=== PATIENT | male | born 1950 | race Hispanic/Latino ===

== ENCOUNTER → 2017-10-29 | Outpatient (CLI) | payer MEDICARE ==
--- NOTE | 2017-10-29 10:22 | Diagnostic Imaging Report ---
PROCEDURE:X-RAY RIGHT SHOULDER, COMPLETE COMPARISON:None. INDICATIONS:SHOULDER PAIN FINDINGS: There is mild joint space narrowing. There are no fractures, dislocations, lytic or blastic lesions. The bones are demineralized. The soft-tissues are unremarkable. CONCLUSION: Mild joint space narrowing. Dorain Marino D.O. Dictated by: Dorian Marino D.O. on 10/29/2017 at 10:27 Electronically approved by: Dorian Marino D.O. on 10/29/2017 at 10:27
== END ==
LOC: RAD 09:14
PROVIDERS: ATTEND Family Medicine
DX: M25.511 Pain in right shoulder (principal)

== ENCOUNTER → 2017-11-13 | Outpatient (CLI) | payer MEDICARE ==
[~2017-11-13] MED LIST: IOPAMIDOL 370 MG/ML 200 ML INFUS..BTL INJ ONE; SODIUM CHLORIDE 0.9% 100 ML ONE
[2017-11-13 16:09] LABS: BLOOD UREA NITROGEN 9 mg/dL (7-26); BUN/CREATININE RATIO 12 (6-25); CREATININE, SERUM 0.75 mg/dL (0.72-1.25); EST GLOMERULAR FILTRATION RATE > 60 ML/MIN (60-)
--- NOTE | 2017-11-14 13:55 | Diagnostic Imaging Report ---
EXAMINATION: CT angiogram of the [place] and neck with contrast CLINICAL HISTORY: Subclavian disorder, seizures COMPARISON: None available TECHNIQUE: The head and neck was scanned utilizing a multidetector helical scanner from the thoracic inlet to the vertex after the I.V contrast administration of 100 mL of Isovue-370. Multiplanar sagittal and coronal reconstructions were performed as well. FINDINGS: The are no areas of abnormal density or enhancement in the brain. There is no mass, hemorrhage or extra-axial fluid collection. The CSF containing spaces are normal in size, position and configuration. CT ANGIOGRAM OF THE [place]: Calcified atherosclerotic plaque in the bilateral carotid siphons without thickened stenoses. The internal carotid artery segments as well as the middle cerebral and anterior cerebral arteries are normal in caliber. The vertebro-basilar circulation is normal. No vascular malformation or aneurysmal dilatation is seen. The draining venous structures are normal and patent. Anatomic variation: Anterior Communicating Artery: Patent Posterior Communicating Arteries: No well-visualized Vertebral arteries: The right is dominant CT ANGIOGRAM OF THE NECK: If present, stenosis of the carotid bulbs is measured based on NASCET criteria i.e area of maximum stenosis compared to the cervical ICA distal to the bulb. Scatter atherosclerotic plaque in the aortic arch, the origin of the great vessels is patent. Right Carotid Artery: Scattered coarse mostly calcified atherosclerotic plaque throughout the right common carotid artery up to the level of the bifurcation, with near-complete occlusion at this level. Mild stenoses of the right carotid bulb (less than 50%). The most cephalic segment of the internal carotid artery is patent. Left carotid artery: Severe stenoses of the left common carotid artery approximately 5 cm from the origin. Extensive mostly coarse calcified atherosclerotic plaque in the left carotid bifurcation and carotid bulb with near complete occlusion of the common carotid artery at the bifurcation level, there is also severe stenoses of the left carotid bulb (greater than 70%). The most cephalic segment of the internal carotid artery is patent Vertebral Arteries: Mild diffuse narrowing and irregularity of the left vertebral artery, with poor opacification of the distal V2 and proximal V3 segments likely related to stenoses, there is distal reconstitution. The right vertebral artery is normal in morphology and caliber. Incidental findings: Chronic multilevel degenerative changes of the cervical spine with minimal spondylolisthesis at C3-C4 and C7-T1. IMPRESSION: 1. Severe stenosis of the left common carotid artery approximately 5 cm distal to the origin. 2. 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 3. Severe stenoses of the left carotid bulb (greater than 70%). 4. Mild stenoses of the right carotid bulb (less than 50%). 5. 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 6. No significant abnormalities of the [place]. Signed by: Dr. Emelyn Giles M.D. on 11/14/2017 1:52 PM
--- NOTE | 2017-11-14 13:55 | Diagnostic Imaging Report ---
EXAMINATION: CT angiogram of the [place] and neck with contrast CLINICAL HISTORY: Subclavian disorder, seizures COMPARISON: None available TECHNIQUE: The head and neck was scanned utilizing a multidetector helical scanner from the thoracic inlet to the vertex after the I.V contrast administration of 100 mL of Isovue-370. Multiplanar sagittal and coronal reconstructions were performed as well. FINDINGS: The are no areas of abnormal density or enhancement in the brain. There is no mass, hemorrhage or extra-axial fluid collection. The CSF containing spaces are normal in size, position and configuration. CT ANGIOGRAM OF THE [place]: Calcified atherosclerotic plaque in the bilateral carotid siphons without thickened stenoses. The internal carotid artery segments as well as the middle cerebral and anterior cerebral arteries are normal in caliber. The vertebro-basilar circulation is normal. No vascular malformation or aneurysmal dilatation is seen. The draining venous structures are normal and patent. Anatomic variation: Anterior Communicating Artery: Patent Posterior Communicating Arteries: No well-visualized Vertebral arteries: The right is dominant CT ANGIOGRAM OF THE NECK: If present, stenosis of the carotid bulbs is measured based on NASCET criteria i.e area of maximum stenosis compared to the cervical ICA distal to the bulb. Scatter atherosclerotic plaque in the aortic arch, the origin of the great vessels is patent. Right Carotid Artery: Scattered coarse mostly calcified atherosclerotic plaque throughout the right common carotid artery up to the level of the bifurcation, with near-complete occlusion at this level. Mild stenoses of the right carotid bulb (less than 50%). The most cephalic segment of the internal carotid artery is patent. Left carotid artery: Severe stenoses of the left common carotid artery approximately 5 cm from the origin. Extensive mostly coarse calcified atherosclerotic plaque in the left carotid bifurcation and carotid bulb with near complete occlusion of the common carotid artery at the bifurcation level, there is also severe stenoses of the left carotid bulb (greater than 70%). The most cephalic segment of the internal carotid artery is patent Vertebral Arteries: Mild diffuse narrowing and irregularity of the left vertebral artery, with poor opacification of the distal V2 and proximal V3 segments likely related to stenoses, there is distal reconstitution. The right vertebral artery is normal in morphology and caliber. Incidental findings: Chronic multilevel degenerative changes of the cervical spine with minimal spondylolisthesis at C3-C4 and C7-T1. IMPRESSION: 1. Severe stenosis of the left common carotid artery approximately 5 cm distal to the origin. 2. 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 3. Severe stenoses of the left carotid bulb (greater than 70%). 4. Mild stenoses of the right carotid bulb (less than 50%). 5. 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 6. No significant abnormalities of the [place]. Signed by: Dr. Emelyn Giles M.D. on 11/14/2017 1:52 PM
== END ==
LOC: CT 15:33
PROVIDERS: ATTEND Specialist
DX: G40.89 Other seizures (principal)
CPT/HCPCS: 36415; 70496; 70498; 82565; 84520; J7050; Q9967

== ENCOUNTER → 2017-12-09 | Outpatient (CLI) | payer OTHER, MEDICAID | LOC: CARD 07:54 | PROVIDERS: ATTEND Family Medicine | DX: M79.605 Pain in left leg (principal); M79.604 Pain in right leg | CPT/HCPCS: 93925 ==

== ENCOUNTER → 2017-12-24 | Outpatient (CLI) | payer MEDICARE ==
--- NOTE | 2017-12-24 16:17 | Diagnostic Imaging Report ---
PROCEDURE:WRIST COMPLETE BILATERAL TECHNIQUE:3 views of the wrists obtained. INDICATION:Joint pain and swelling COMPARISON:None. FINDINGS: Right wrist: The distal radius and ulna are intact. There is an ununited styloid process or remote ununited styloid process fracture. The carpal bones are intact and normally aligned. There are minimal degenerative changes of the CMC joint of the first digit. There are degenerative changes of the first MCP joint and the first IP joint. There is narrowing of the proximal IP joints of digits 2 through 5 and the distal IP joint of the fifth digit. There are no erosive changes. There are mild degenerative changes of the MCP joint of the second digit. No significant osteophytosis. No calcifications or radiopaque foreign bodies in the soft tissues. Left wrist: The distal radius and ulna are intact. The carpal bones are intact and normally aligned. Mild to moderate degenerative changes on the CMC joint of the first digit and mild degenerative changes of the triscaphe. There are moderate degenerative changes of the MCP of the first and second joints, particularly the second joint, with osteophytosis. There is narrowing of the proximal IP joints of digits 2 through 5 and the distal IP joints of the second and third digits with osteophytes. No erosive changes. No calcifications or radiopaque foreign bodies in the soft tissues CONCLUSION: Degenerative changes of the digits as described above, most severely the MCP joint of the second digit of the left hand and left wrist as described above. Dictated by: Flory Pradhan M.D. on 12/24/2017 at 16:23 Electronically approved by: Flory Pradhan M.D. on 12/24/2017 at 16:23
--- NOTE | 2017-12-24 16:24 | Diagnostic Imaging Report ---
PROCEDURE:HAND THREE VIEWS BILATERAL TECHNIQUE:3 views of the hands obtained INDICATION:Bilateral pain and swelling, evaluate for osteoarthritis COMPARISON:[facility], DX, WRIST COMPLETE BILATERAL, 12/24/2017, 15:19. FINDINGS: Right hand: No acute fracture or dislocation. The ununited ulnar styloid process or chronic styloid process fracture is present. There mild degenerative changes of the MCP joint of the first digit and mild changes of the MCP joint of the second digit. There is narrowing of the proximal and distal IP joints of digits 2 through 5 and the IP joint of the first digit. There are osteophytes surrounding the IP joint of the second, third, and fourth digits. No erosive changes. No calcifications or foreign bodies in the soft tissues. Left hand: No acute fracture or dislocation. There are degenerative changes of the triscaphe. Mild to moderate degenerative changes of the MCP joint of the first digit and moderate degenerative changes of the MCP joint of the second digit. There are mild degenerative changes of the MCP joint of the third digit. There is narrowing of the proximal and distal IP joints without significant osteophytosis. No erosive changes. No calcifications or foreign bodies in the soft tissues. CONCLUSION: Degenerative changes of the hand and wrist, most severe in the left hand. No erosions. Dictated by: Flory Pradhan M.D. on 12/24/2017 at 16:30 Electronically approved by: Flory Pradhan M.D. on 12/24/2017 at 16:31
== END ==
LOC: RAD 15:04
PROVIDERS: ATTEND Family Medicine
DX: M79.642 Pain in left hand (principal); M79.641 Pain in right hand; M25.532 Pain in left wrist; M25.531 Pain in right wrist

== ENCOUNTER → 2017-12-29 | Outpatient (CLI) | payer OTHER ==
[~2017-12-29] MED LIST changes: +SODIUM CHLORIDE 0.9% 100 ML 100 ML ONE; -SODIUM CHLORIDE 0.9% 100 ML ONE
[2017-12-29 09:19] LABS: BLOOD UREA NITROGEN 10 mg/dL (7-26); BUN/CREATININE RATIO 15 (6-25); CREATININE, SERUM 0.65 mg/dL (0.72-1.25); EST GLOMERULAR FILTRATION RATE > 60 ML/MIN (60-)
--- NOTE | 2017-12-29 14:13 | Diagnostic Imaging Report ---
PROCEDURE:CTA ABD/PEL/BILATERAL LOWER EXT RUNOFF COMPARISON:None. INDICATIONS:ABNORMAL ARTERIAL DOPPLER TECHNIQUE: Multi-detector CT technology with Dose Reduction was employed. Images were obtained after the administration of 100 cc Isovue 370 intravenously. For optimization of anatomic evaluation, multiplanar and volume rendering reconstructions were performed. Advanced 3-D off-line postprocessing were performed on a dedicated stand-alone workstation under the direct supervision of the interpreting physician. DLP: 6 2929 mGy-cm FINDINGS: Vasculature: The abdominal aorta is non-aneurysmal. There is atherosclerotic calcification diffusely along the course of the abdominal aorta. The celiac axis, SMA, MALINDA, and renal artery origins are patent. 2 renal arteries perfuse each kidney. Iliac inflow: Left: There is extensive atherosclerotic calcification of the iliac arterial system. The proximal common iliac artery is patent. There is short segment severe stenosis of the distal left common iliac artery and proximal left external iliac artery secondary to extensive calcified and noncalcified atherosclerotic plaque. The proximal internal iliac artery is occluded. Distally the external iliac artery is diffusely diseased though appears patent with the exception of a short segment focus of moderate-severe stenosis along the mid segment (series 3 image 72). Right: The common iliac artery is patent proximally, though there is a short segment severe stenosis secondary to extensive calcification seen on series 3 image 63. The proximal internal iliac artery is occluded. There is severe stenosis of the proximal aspect of the external iliac artery at the bifurcation. Additional foci of moderate stenosis along the mid and distal segments of the external iliac artery are seen on series 3 image 79 and image 85. Femoral-popliteal segments: Left: The common femoral artery is patent with diffuse calcified and noncalcified atherosclerotic plaque. The femoral bifurcation is patent. The profunda femoris artery and proximal muscular branches are patent. The superficial femoral artery is notable for diffuse calcified and noncalcified atherosclerotic plaque. There is a short segment focus of suspected moderate stenosis proximally seen on series 3 image 103. The remainder of the superficial femoral artery is widely patent without additional foci of stenosis. The above and below knee segments of the left popliteal artery are patent with mild disease. Right: There is short segment moderate stenosis of the distal common femoral artery seen on series 3 image 97. The femoral bifurcation is patent. The profunda femoris artery and proximal muscular branches are patent. The superficial femoral artery is notable for diffuse calcified and noncalcified atherosclerotic plaque, without significant stenosis. The above and below knee segments of the right popliteal artery are patent without significant stenosis. Runoff: Left: The anterior tibial artery is patent and is visualized to its continuation as dorsalis pedis artery. The tibioperoneal trunk is patent. The peroneal artery is patent to its expected termination above the ankle joint. The posterior tibial artery is patent and is visualized to its continuation of the lateral plantar artery. Right: Anterior tibial artery is patent to its continuation of the dorsalis pedis artery. The tibioperoneal trunk is patent. The peroneal artery is patent to its expected termination above the ankle joint the posterior tibial artery is patent and is visualized to its continuation of the lateral plantar artery. Abdominal and Pelvic soft-tissues and organs: Lung bases: Moderate right pleural effusion with passive atelectasis of the right lower lobe. No pericardial effusion. Liver: No focal hepatic lesion or intrahepatic biliary ductal dilatation. Subcentimeter hypoattenuating lesion in segment 2-3 is too small to further characterize but likely representing small cysts. Biliary: No intrahepatic or extrahepatic biliary ductal dilatation. Spleen: Heterogeneity of splenic attenuation reflects arterial phase of scanning. Pancreas: No mass or ductal dilatation. Adrenal Glands: No nodules. Kidneys: No calculi, hydronephrosis, or mass lesion. GI: Large bowel shows no evidence of distention or wall thickening. There are scattered sigmoid diverticula without evidence of diverticulitis. Normal appendix. Stomach is collapsed with prominence of the rugal folds. No small bowel dilatation to suggest obstruction. Peritoneum/Retroperitoneum: No ascites. No pneumoperitoneum. Reproductive organs: The urinary bladder is poorly distended and poorly evaluated. Coarse prostatic calcifications. Musculoskeletal: No osseous destructive lesions. Multilevel degenerative disc disease of the lumbar spine. Lymph nodes: No pelvic sidewall, retroperitoneal, or mesenteric lymphadenopathy. CONCLUSION: Extensive calcified and noncalcified atherosclerotic disease of the abdominal aorta without major branch vessel stenosis or aneurysmal dilatation. Scattered foci of moderate-severe stenoses of the bilateral common and external iliac arteries as above. The characterization of the degree of stenosis is difficult in light of extensive atherosclerotic calcifications. Short segment moderate stenosis of the distal right common femoral artery. Short segment moderate stenosis of the proximal left superficial femoral artery. Otherwise no significant femoral-popliteal stenosis. 3 vessel runoff bilaterally. Nonvascular findings include a moderate right pleural effusion with passive atelectasis of the right lower lobe and large bowel diverticulosis without evidence of diverticulitis. Dictated by: Eamon Mendes M.D. on 12/29/2017 at 14:19 Electronically approved by: Eamon Mendes M.D. on 12/29/2017 at 14:19
== END ==
LOC: CT 08:31
PROVIDERS: ATTEND Family Medicine
DX: I72.3 Aneurysm of iliac artery (principal)
CPT/HCPCS: 36415; 75635; 82565; 84520; Q9967

== ENCOUNTER → 2018-01-26 | Outpatient (CLI) | payer MEDICARE, OTHER ==
[~2018-01-26] MED LIST changes: -SODIUM CHLORIDE 0.9% 100 ML 100 ML ONE; +SODIUM CHLORIDE 0.9% 50ML 50 ML ONE
[2018-01-26 12:46] LABS: BLOOD UREA NITROGEN 13 mg/dL (7-26); BUN/CREATININE RATIO 17 (6-25); CREATININE, SERUM 0.76 mg/dL (0.72-1.25); EST GLOMERULAR FILTRATION RATE > 60 ML/MIN (60-)
--- NOTE | 2018-01-26 13:47 | Diagnostic Imaging Report ---
EXAMINATION: CT scan of the chest with contrast. TECHNIQUE: Spiral CT images of the chest were performed from the lung apices to the level of the adrenal glands after the intravenous administration of 100 cc of Isovue-370. Coronal and sagittal reformatted images were obtained. COMPARISON: CTA neck 11/13/2017 CLINICAL HISTORY:Smoker, weight loss, pleural effusion DISCUSSION: LINES/TUBES: None. LUNGS AND AIRWAYS: Moderate upper lobe predominant centrilobular and paraseptal emphysematous changes. Mild perihilar and lower lobe predominant groundglass opacities. No suspicious mass lesion, consolidation, or gross fibrotic change. The trachea, mainstem bronchi, and central lobar and segmental bronchi are patent PLEURA: Trace right pleural effusion. No left pleural effusion. HEART AND MEDIASTINUM: Visualized portions of the thyroid gland appear normal. Mild nonspecific right hilar lymphadenopathy for example series 2 image 54 and image 65. No pericardial effusion. No central pulmonary embolus. Pulmonary outflow tract is of normal caliber. No ectasia or aneurysmal dilatation of the thoracic aorta. Atherosclerotic coronary artery calcifications. Short segment severe stenosis of the left subclavian artery proximal to the takeoff of the vertebral artery, unchanged. Bilateral common carotid artery stenoses seen to better advantage on comparison CTA neck from November 21, 2017. LYMPH NODES: As above. ABDOMEN: Subcentimeter hypoattenuating lesions within the left hepatic lobe, too small to further characterize though likely to represent small cysts. Visualized portions of the spleen, adrenals, pancreas, and left kidney are unremarkable. BONES AND SOFT TISSUES: No osseous destructive lesions. Degenerative changes of the shoulder girdles. Multilevel degenerative disc changes of the cervical and thoracic spine. IMPRESSION: Right hilar lymphadenopathy is of uncertain etiology though may be reactive in the absence of a discrete right lung mass. A short-term follow-up (3-[address]) [address] scan of the chest with contrast is suggested to document stability. Alternatively, bronchoscopy with tissue sampling may be considered. Moderate emphysematous changes. Scattered groundglass opacities may reflect atelectasis or mild interstitial edema. Trace right pleural effusion. Vascular findings include short segment severe left subclavian stenosis and bilateral carotid stenoses, previously described on CTA of the neck 11/13/2014. Signed by: Dr. Eamon Mendes M.D. on 01/26/2018 1:42 PM
== END ==
LOC: CT 11:23
PROVIDERS: ATTEND Family Medicine
DX: J90 Pleural effusion, not elsewhere classified (principal); R63.4 Abnormal weight loss; F17.210 Nicotine dependence, cigarettes, uncomplicated
CPT/HCPCS: 36415; 71260; 82565; 84520; Q9967

== ENCOUNTER → 2018-02-11 | Outpatient (CLI) | payer OTHER, MEDICARE | LOC: CARD 09:38 | PROVIDERS: ATTEND Family Medicine | DX: I70.90 Unspecified atherosclerosis (principal); I73.9 Peripheral vascular disease, unspecified; R09.89 Other specified symptoms and signs involving the circulatory and respiratory systems | CPT/HCPCS: 93880 ==

== ENCOUNTER → 2018-02-20 | Outpatient (CLI) | payer MEDICARE, OTHER ==
[~2018-02-20] MED LIST changes: +ASPIRIN81 MG PO; +CEFDINIR300 MG PO; +DEPAKENE250 MG/5 M PO; +DIVALPROEX SOD500 M1 PO; -IOPAMIDOL 370 MG/ML 200 ML INFUS..BTL INJ ONE; +MIRTAZAPINE15 MG PO; +PLAVIX75 MG PO; -SODIUM CHLORIDE 0.9% 50ML 50 ML ONE; +TEGRETOL200 MG PO
--- NOTE | 2018-02-20 09:42 | Diagnostic Imaging Report ---
PROCEDURE:X-RAY LEFT SHOULDER, COMPLETE COMPARISON:CT chest 922017. INDICATIONS:LEFT SHOULDER PAIN FINDINGS: No acute, displaced fracture or dislocation. The humeral head projects appropriately adjacent to the glenoid. Note of a high riding humeral head with decreased acromiohumeral interval. Joint space narrowing and marginal osteophytosis affecting the glenohumeral and acromioclavicular joints. Soft tissues are unremarkable. Partially visualized left hemithorax is well aerated. CONCLUSION: Moderate acromioclavicular and glenohumeral degenerative joint disease. High riding humeral head suggestive of chronic rotator cuff tear. Dictated by: Eamon Mendes M.D. on 02/20/2018 at 9:50 Electronically approved by: Eamon Mendes M.D. on 02/20/2018 at 9:50
== END ==
LOC: RAD 08:51
PROVIDERS: ATTEND Family Medicine
DX: M25.512 Pain in left shoulder (principal)

== ENCOUNTER → 2018-02-26 | Outpatient (CLI) | payer MEDICARE, OTHER ==
--- NOTE | 2018-02-26 13:45 | Diagnostic Imaging Report ---
ADDENDUM #1 EXAM: MODIFIED BA. SWALLOW DATE: 02/26/2018 INDICATION: Oral pharyngeal Dysphasia. Aspiration. COMPARISON: None TECHNIQUE: The study was performed by the speech pathology service. Numerous consistencies of barium were given by mouth. Fluoroscopy was obtained. FLUORO TIME: 0.7 minutes Radiation Dose: 60.21 cGycm2 FINDINGS: Silent trace/mild aspiration of mixed consistencies of swallowed barium. Penetration of thin liquids. Please see speech pathology report for further details. IMPRESSION: Episodes of aspiration and penetration. Please see speech pathology report for further details Signed by: Dr. Pelon Robert M.D. on 03/02/2018 10:22 AM ADDENDUM #2 EXAM: MODIFIED BA. SWALLOW DATE: 02/26/2018 INDICATION: Oral pharyngeal dysphagia. Aspiration. COMPARISON: None TECHNIQUE: The study was performed by the speech pathology service. Numerous consistencies of barium were given by mouth. Fluoroscopy was obtained. FLUORO TIME: 0.7 minutes Radiation Dose: 60.21 cGycm2 FINDINGS: Episodes of aspiration and penetration. Please see speech pathology report for further details. IMPRESSION: Episodes of aspiration and penetration. Please see speech pathology report for further details. Signed by: Dr. Pelon Robert M.D. on 03/09/2018 2:58 PM ORIGINAL REPORT EXAM: MODIFIED BA. SWALLOW DATE: 02/26/2018 INDICATION: Dysphasia. Aspiration. COMPARISON: None TECHNIQUE: The study was performed by the speech pathology service. Numerous consistencies of barium were given by mouth. Fluoroscopy was obtained. FLUORO TIME: 0.7 minutes Radiation Dose: 60.21 cGycm2 FINDINGS: Episodes of aspiration and penetration. Please see speech pathology report for further details. IMPRESSION: Episodes of aspiration and penetration. Please see speech pathology report for further details. Signed by: Dr. Pelon Robert M.D. on 02/26/2018 1:42 PM
== END ==
LOC: DX 09:07
PROVIDERS: ATTEND Internal Medicine Critical Care Medicine
DX: R13.12 Dysphagia, oropharyngeal phase (principal)
CPT/HCPCS: 74230; 92526; 92611; G9162; G9163; G9164

== ENCOUNTER 2018-02-28 17:07 | Inpatient (IN) | payer MEDICARE, OTHER ==
[~2018-02-28] VITALS: Ht 167.6 cm; Wt 65.8 kg
--- OUTSIDE RECORDS SUMMARY | 2018-02-28 17:09 | XMS REPORT ---
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 Allergies, Adverse Reactions, Alerts This patient has no known allergies or adverse reactions. Medications This patient has no known medications. Results Test Description Test Time Test Comments Text Results Atomic Results Result Comments CHASE BA. SWALLOW 2018-02-26 13:38:00 [place] [address] Patient Name: ZEN DOYLE MR #: [id number] : 1950 Age/Sex: 67/M Req #: [id number] Adm Physician: Ordered by: MORRIS PETERS MD Report #: [id number] Location: DX Room/Bed: Procedure: [id number] DX/MODIFIED BA. SWALLOW Exam Date: 02/26/18 Exam Time: 1015 REPORT STATUS: Signed EXAM: MODIFIED BA. SWALLOW DATE: 02/26/2018 INDIC ATION: Dysphasia. Aspiration. COMPARISON: None TECHNIQUE: The study was performed by the speech pathology service. Numerous consistencies of barium were given by mouth. Fluoroscopy was obtained. FLUORO TIME: 0.7 minutes Radiation Dose: 60.21 cGycm2 FINDINGS: Episodes of aspiration and penetration. Please see speech pathology report for further details. IMPRESSION: Episodes of aspiration and penetration. Please see speech pathology report for further details. Signed by: Dr. Nayeli Robert M.D. on 02/26/2018 1:42 PM Dictated By: NAYELI ROBETR MD, MD 41 Transcribed By: ABBI on 02/26/181341 COPY TO: MORRIS PETERS MD SHOULDER LEFT COMPLETE 2018-02-20 09:50:00 [place] [address] Patient Name: ZEN DOYLE MR #: [id number] : 1950 Age/Sex: 67/M Req #: [id number] [facility] Physician: Ordered by: SHELLIE NAVA, JING Scott MD Report #: [id number] Location: [facility] Room/Bed: Procedure: [id number] DX/SHOULDER LEFT COMPLETE Exam Date: 02/20/18 Exam Time: 0920 REPORT STATUS: Signed PROCEDURE: X-RAY LEFT SHOULDER, COMPLETE COMPARISON: CT chest 922017. INDICATIONS: LEFT SHOULDER PAIN FINDINGS: No acute, displaced fracture or dislocation. The humeral head projects appropriately adjacent to the glenoid. Note of a high riding humeral head with decreased acromiohumeral interval. Joint space narrowing and marginal osteophytosis affecting the glenohumeral and acromioclavicular joints. Soft tissues are unremarkable. Partially visualized left hemithorax is well aerated. CONCLUSION: Moderate acromioclavicular and glenohumeral degenerative joint disease. High riding humeral head suggestive of chronic rotator cuff tear. Dictated by: Micky Mendes M.D. on 02/20/2018 at 9:50 Electronically approved by: Micky Mendes M.D. on 02/20/2018 at 9:50 Dictated By: MICKY MENDES MD 9 Transcribed By: PHILLIP on 02/20/18949 COPY TO: JING HENSLEY CT CHEST W 2018-01-26 13:25:00 [place] [address] Patient Name: ZEN DOYLE MR #: [id number] : 1950 Age/Sex: 67/M Req #: [id number] Adm Physician: Ordered by: JING HENSLEY MD, MD Report #: [id number] Location: CT Room/Bed: Procedure: [id number] CT/CT CHEST W Exam Date: 01/26/18 Exam Time: 1300 REPORT STATUS: Signed EXAMINATION: CT scan of the chest with contrast. TECHNIQUE: Spiral CT images of the chest were performed from the lung apices to the level of the adrenal glands after the intravenous administration of 100 cc of Isovue-370. Coronal and sagittal reformatted images were obtained. COMPARISON: CTA neck 11/13/2017 CLINICAL HISTORY:Smoker, weight loss, pleural effusion DISCUSSION: LINES/TUBES: None. LUNGS AND AIRWAYS: Moderate upper lobe predominant centrilobular and paraseptal emphysematous changes. Mild perihilar and lower lobe predominant groundglass opacities. No suspicious mass lesion, consolidation, or gross fibrotic change. The trachea, mainstem bronchi, and central lobar and segmental bronchi are patent PLEURA: Trace right pleural effusion. No left pleural effusion. HEART AND MEDIASTINUM: Visualized portions of the thyroid gland appear normal. Mild nonspecific right hilar lymphadenopathy for example series 2 image 54 and image 65. No pericardial effusion. No central pulmonary embolus. Pulmonary outflow tract is of normal caliber. No ectasia or aneurysmal dilatation of the thoracic aorta. Atherosclerotic coronary artery calcifications. Short segment severe stenosis of the left subclavian artery proximal to the takeoff of the vertebral artery, unchanged. Bilateral common carotid artery stenoses seen to better advantage on comparison CTA neck from November 21, 2017. LYMPH NODES: As above. ABDOMEN: Subcentimeter hypoattenuating lesions within the left hepatic lobe, too small to further characterize though likely to represent small cysts. Visualized portions of the spleen, adrenals, pancreas, and left kidney are unremarkable. BONES AND SOFT TISSUES: No osseous destructive lesions. Degenerative changes of the shoulder girdles. Multilevel degenerative disc changes of the cervical and thoracic spine. IMPRESSION: Right hilar lymphadenopathy is of uncertain etiology though may be reactive in the absence of a discrete right lung mass. A short-term follow-up (3-6 month) CT scan of the chest with contrast is suggested to document stability. Alternatively, bronchoscopy with tissue sampling may be considered. Moderate emphysematous changes. Scattered groundglass opacities may reflect atelectasis or mild interstitial edema. Trace right pleural effusion. Vascular findings include short segment severe left subclavian stenosis and bilateral carotid stenoses, previously described on CTA of the neck 11/13/2014. Signed by: Dr. Micky Mendes M.D. on 01/26/2018 1:42 PM Dictated By: MICKY MENDES MD 1342 Transcribed By: ABBI on 01/26/18 1342 COPY TO: JING HENSLEY CTA ABD/PEL/RUN OFF 2017-12-29 14:19:00 [place] [address] Patient Name: ZEN DOYLE MR #: [id number] : 1950 Age/Sex: 67/M Req #: [id number] Adm Physician: Ordered by: JING HENSLEY MD, MD Report #: [id number] Location: CT Room/Bed: Procedure: CT/CTA ABD/PEL/RUN OFF Exam Date: 12/29/17 Exam Time: 944 REPORT STATUS: Signed PROCEDURE: CTA ABD/PEL/BILATERAL LOWER EXT RUNOFF COMPARISON: None. INDICATIONS: ABNORMAL ARTERIAL DOPPLER TECHNIQUE: Multi-detector CT technology with Dose Reduction was employed. Images were obtained after the administration of 100 cc Isovue 370 intravenously. For optimization of anatomic evaluation, multiplanar and volume rendering reconstructions were performed. Advanced 3-D off-line postprocessing were performed on a dedicated stand-alone workstation under the direct supervision of the interpreting physician. DLP: 6 2929 mGy-cm FINDINGS: Vasculature: The abdominal aorta is non-aneurysmal. There is atherosclerotic calcification diffusely along the course of the abdominal aorta. The celiac axis, SMA, MALINDA, and renal artery origins are patent. 2 renal arteries perfuse each kidney. Iliac inflow: Left: There is extensive atherosclerotic calcification of the iliac arterial system. The proximal common iliac artery is patent. There is short segment severe stenosis of the distal left common iliac artery and proximal left external iliac artery secondary to extensive calcified and noncalcified atherosclerotic plaque. The proximal internal iliac artery is occluded. Distally the external iliac artery is diffusely diseased though appears patent with the exception of a short segment focus of moderate-severe stenosis along the mid segment (series 3 image 72). Right: The common iliac artery is patent proximally, though there is a short segment severe stenosis secondary to extensive calcification seen on series 3 image 63. The proximal internal iliac artery is occluded. There is severe stenosis of the proximal aspect of the external iliac artery at the bifurcation. Additional foci of moderate stenosis along the mid and distal segments of the external iliac artery are seen on series 3 image 79 and image 85. Femoral- popliteal segments: Left: The common femoral artery is patent with diffuse calcified and noncalcified atherosclerotic plaque. The femoral bifurcation is patent. The profunda femoris artery and proximal muscular branches are patent. The superficial femoral artery is notable for diffuse calcified and noncalcified atherosclerotic plaque. There is a short segment focus of suspected moderate stenosis proximally seen on series 3 image 103. The remainder of the superficial femoral artery is widely patent without additional foci of stenosis. The above and below knee segments of the left popliteal artery are patent with mild disease. Right: There is short segment moderate stenosis of the distal common femoral artery seen on series 3 image 97. The femoral bifurcation is patent. The profunda femoris artery and proximal muscular branches are patent. The superficial femoral artery is notable for diffuse calcified and noncalcified atherosclerotic plaque, without significant stenosis. The above and below knee segments of the right popliteal artery are patent without significant stenosis. Runoff: Left: The anterior tibial artery is patent and is visualized to its continuation as dorsalis pedis artery. The tibioperoneal trunk is patent. The peroneal artery is patent to its expected termination above the ankle joint. The posterior tibial artery is patent and is visualized to its continuation of the lateral plantar artery. Right: Anterior tibial artery is patent to its continuation of the dorsalis pedis artery. The tibioperoneal trunk is patent. The peroneal artery is patent to its expected termination above the ankle joint the posterior tibial artery is patent and is visualized to its continuation of the lateral plantar artery. Abdominal and Pelvic soft- tissues and organs: Lung bases: Moderate right pleural effusion with passive atelectasis of the right lower lobe. No pericardial effusion. Liver: No focal hepatic lesion or intrahepatic biliary ductal dilatation. Subcentimeter hypoattenuating lesion in segment 2-3 is too small to further characterize but likely representing small cysts. Biliary: No intrahepatic or extrahepatic biliary ductal dilatation. Spleen: Heterogeneity of splenic attenuation reflects arterial phase of scanning. Pancreas: No mass or ductal dilatation. Adrenal Glands: No nodules. Kidneys: No calculi, hydronephrosis, or mass lesion. GI: Large bowel shows no evidence of distention or wall thickening. There are scattered sigmoid diverticula without evidence of diverticulitis. Normal appendix. Stomach is collapsed with prominence of the rugal folds. No small bowel dilatation to suggest obstruction. Peritoneum/Retroperitoneum: No ascites. No pneumoperitoneum. Reproductive organs: The urinary bladder is poorly distended and poorly evaluated. Coarse prostatic calcifications. Musculoskeletal: No osseous destructive lesions. Multilevel degenerative disc disease of the lumbar spine. Lymph nodes: No pelvic sidewall, retroperitoneal, or mesenteric lymphadenopathy. CONCLUSION: Extensive calcified and noncalcified atherosclerotic disease of the abdominal aorta without major branch vessel stenosis or aneurysmal dilatation. Scattered foci of moderate-severe stenoses of the bilateral common and external iliac arteries as above. The characterization of the degree of stenosis is difficult in light of extensive atherosclerotic calcifications. Short segment moderate stenosis of the distal right common femoral artery. Short segment moderate stenosis of the proximal left superficial femoral artery. Otherwise no significant femoral-popliteal stenosis. 3 vessel runoff bilaterally. Nonvascular findings include a moderate right pleural effusion with passive atelectasis of the right lower lobe and large bowel diverticulosis without evidence of diverticulitis. Dictated by: Micky Mendes M.D. on 12/29/2017 at 14:19 Electronically approved by: Micky Mendes M.D. on 12/29/2017 at 14:19 Dictated By: MICKY MENDES MD 141 Transcribed By: PHILLIP on 12/29/17 141 COPY TO: JING HENSLEY HAND THREE VIEWS BILATERAL 2017-12-24 16:31:00 [place] [address] Patient Name: ZEN DOYLE MR #: [id number] : 1950 Age/Sex: 67/M Req #: [id number] Adm Physician: Ordered by: JING HENSLEY MD, MD Report #: [id number] Location: [facility] Room/Bed: Procedure: [id number] DX/HAND THREE VIEWS BILATERAL Exam Date: Exam Time: REPORT STATUS: Signed PROCEDURE: HAND THREE VIEWS BILATERAL TECHNIQUE: 3 views of the hands obtained INDICATION: Bilateral pain and swelling, evaluate for osteoarthritis COMPARISON: [facility], DX, WRIST COMPLETE BILATERAL, 12/24/2017, 15:19. FINDINGS: Right hand: No acute fracture or dislocation. The ununited ulnar styloid process or chronic styloid process fracture is present. There mild degenerative changes of the MCP joint of the first digit and mild changes of the MCP joint of the second digit. There is narrowing of the proximal and distal IP joints of digits 2 through 5 and the IP joint of the first digit. There are osteophytes surrounding the IP joint of the second, third, and fourth digits. No erosive changes. No calcifications or foreign bodies in the soft tissues. Left hand: No acute fracture or dislocation. There are degenerative changes of the triscaphe. Mild to moderate degenerative changes of the MCP joint of the first digit and moderate degenerative changes of the MCP joint of the second digit. There are mild degenerative changes of the MCP joint of the third digit. There is narrowing of the proximal and distal IP joints without significant osteophytosis. No erosive changes. No calcifications or foreign bodies in the soft tissues. CONCLUSION: Degenerative changes of the hand and wrist, most severe in the left hand. No erosions. Dictated by: Flory Strong M.D. on 12/24/2017 at 16:30 Electronically approved by: Flory Strong M.D. on 12/24/2017 at 16:31 Dictated By: FLORY STRONG MD 1631 Transcribed By: PHILLIP on 12/24/17 1631 COPY TO: JING HENSLEY WRIST COMPLETE BILATERAL 2017-12-24 16:23:00 [place] [address] Patient Name: ZEN DOYLE MR #: [id number] : 1950 Age/Sex: 67/M Req #: [id number] Adm Physician: Ordered by: JING HENSLEY MD, MD Report #: [id number] Location: [facility] Room/Bed: Procedure: [id number] DX/WRIST COMPLETE BILATERAL Exam Date: Exam Time: REPORT STATUS: Signed PROCEDURE: WRIST COMPLETE BILATERAL TECHNIQUE: 3 views of the wrists obtained. INDICATION: Joint pain and swelling COMPARISON: None. FINDINGS: Right wrist: The distal radius and ulna are intact. There is an ununited styloid process or remote ununited styloid process fracture. The carpal bones are intact and normally aligned. There are minimal degenerative changes of the CMC joint of the first digit. There are degenerative changes of the first MCP joint and the first IP joint. There is narrowing of the proximal IP joints of digits 2 through 5 and the distal IP joint of the fifth digit. There are no erosive changes. There are mild degenerative changes of the MCP joint of the second digit. No significant osteophytosis. No calcifications or radiopaque foreign bodies in the soft tissues. Left wrist: The distal radius and ulna are intact. The carpal bones are intact and normally aligned. Mild to moderate degenerative changes on the CMC joint of the first digit and mild degenerative changes of the triscaphe. There are moderate degenerative changes of the MCP of the first and second joints, particularly the second joint, with osteophytosis. There is narrowing of the proximal IP joints of digits 2 through 5 and the distal IP joints of the second and third digits with osteophytes. No erosive changes. No calcifications or radiopaque foreign bodies in the soft tissues CONCLUSION: Degenerative changes of the digits as described above, most severely the MCP joint of the second digit of the left hand and left wrist as described above. Dictated by: Flory Strong M.D. on 12/24/2017 at 16:23 Electronically approved by: Flory Strong M.D. on 12/24/2017 at 16:23 Dictated By: FLORY STRONG MD 22 Transcribed By: PHILLIP on 12/24/17 1623 COPY TO: JING HENSLEY 2017-11-14 11:09:00 [place] [address] Patient Name: ZEN DOYLE MR #: [id number] : 1950 Age/Sex: 67/M Req #: [id number] [facility] Physician: Ordered by: MALINA CONTRERAS MD Report #: [id number] Location: CT Room/Bed: Procedure: [id number] CT/CTA BRAIN Exam Date: 11/13/17 Exam Time: 1600 REPORT STATUS: Signed ADDENDUM #1 Dose modulation, iterative reconstruction, and/or weight based adjustment of the mA/kV was utilized to reduce the radiation dose to as low as reasonably achievable. For optimization of of anatomic evaluation, multi-planar reconstructions, maximum intensity projections, and advanced 3D off-line post-processing was obtained and performed on a dedicated stand-alone workstation under the direct mortensen pervision of the interpreting physician. Signed by: Dr. Rhea Giles M.D. on 12/23/2017 11:43 AM ORIGINAL REPORT EXAMINATION: CT angiogram of the [place] and neck with contrast CLINICAL HISTORY: Subclavian disorder, seizures COMPARISON: None available TECHNIQUE: The head and neck was scanned utilizing a multidetector helical scanner from the thoracic inlet to the vertex after the I.V contrast administration of 100 mL of Isovue-370. Multiplanar sagittal and coronal reconstructions were performed as well. FINDINGS: The are no areas of abnormal density or enhancement in the brain. There is no mass, hemorrhage or extra-axial fluid collection. The CSF containing spaces are normal in size, position and configuration. CT ANGIOGRAM OF THE [place] OF [place]: Calcified atherosclerotic plaque in the bilateral carotid siphons without thickened stenoses. The internal carotid artery segments as well as the middle cerebral and anterior cerebral arteries are normal in caliber. The vertebro-basilar circulation is normal. No vascular malformation or aneurysmal dilatation is seen. The draining venous structures are normal and patent. Anatomic variation: Anterior Communicating Artery: Patent Posterior Communicating Arteries: No well- visualized Vertebral arteries: The right is dominant CT ANGIOGRAM OF THE NECK: If present, stenosis of the carotid bulbs is measured based on NASCET criteria i.e area of maximum stenosis compared to the cervical ICA distal to the bulb. Scatter atherosclerotic plaque in the aortic arch, the origin of the great vessels is patent. Right Carotid Artery: Scattered coarse mostly calcified atherosclerotic plaque throughout the right common carotid artery up to the level of the bifurcation, with near-complete occlusion at this level. Mild stenoses of the right carotid bulb (less than 50%). The most cephalic segment of the internal carotid artery is patent. Left carotid artery: Severe stenoses of the left common carotid artery approximately 5 cm from the origin. Extensive mostly coarse calcified atherosclerotic plaque in the left carotid bifurcation and carotid bulb with near complete occlusion of the common carotid artery at the bifurcation level, there is also severe stenoses of the left carotid bulb (greater than 70%). The most cephalic segment of the internal carotid artery is patent Vertebral Arteries: Mild diffuse narrowing and irregularity of the left vertebral artery, with poor opacification of the distal V2 and proximal V3 segments likely related to stenoses, there is distal reconstitution. The right vertebral artery is normal in morphology and caliber. Incidental findings: Chronic multilevel degenerative changes of the cervical spine with minimal spondylolisthesis at C3-C4 and C7-T1. IMPRESSION: 1. Severe stenosis of the left common carotid artery approximately 5 cm distal to the origin. 2. 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 3. Severe stenoses of the left carotid bulb (greater than 70%). 4. Mild stenoses of the right carotid bulb (less than 50%). 5. 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 6. No significant abnormalities of the [place]. Signed by: Dr. Rhea Giles M.D. on 11/14/2017 1:52 PM Dictated By: RHEA GILES MD 1143 Transcribed By: ABBI on 11/14/17 1352 COPY TO: MALINA CONTRERAS MD CTA NECK 2017-11-14 11:09:00 [place] [address] Patient Name: ZEN DOYLE MR #: [id number] : 1950 Age/Sex: 67/M Req #: [id number] Adm Physician: Ordered by: MALINA CONTRERAS MD Report #: [id number] Location: CT Room/Bed: Procedure: [id number] CT/CTA NECK Exam Date: 11/13/17 Exam Time: 1600 REPORT STATUS: Signed ADDENDUM #1 Dose modulation, iterative reconstruction, and/or weight based adjustment of the mA/kV was utilized to reduce the radiation dose to as low as reasonably achievable. For optimization of of anatomic evaluation, multi-planar reconstructions, maximum intensity projections, and advanced 3D off-line post-processing was obtained and performed on a dedicated stand-alone workstation under the direct sup ervision of the interpreting physician. Signed by: Dr. Rhea Giles M.D. on 12/23/2017 11:43 AM ORIGINAL REPORT EXAMINATION: CT angiogram of the [place] and neck with contrast CLINICAL HISTORY: Subclavian disorder, seizures COMPARISON: None available TECHNIQUE: The head and neck was scanned utilizing a multidetector helical scanner from the thoracic inlet to the vertex after the I.V contrast administration of 100 mL of Isovue-370. Multiplanar sagittal and coronal reconstructions were performed as well. FINDINGS: The are no areas of abnormal density or enhancement in the brain. There is no mass, hemorrhage or extra-axial fluid collection. The CSF containing spaces are normal in size, position and configuration. CT ANGIOGRAM OF THE [place] OF [place]: Calcified atherosclerotic plaque in the bilateral carotid siphons without thickened stenoses. The internal carotid artery segments as well as the middle cerebral and anterior cerebral arteries are normal in caliber. The vertebro-basilar circulation is normal. No vascular malformation or aneurysmal dilatation is seen. The draining venous structures are normal and patent. Anatomic variation: Anterior Communicating Artery: Patent Posterior Communicating Arteries: No well- visualized Vertebral arteries: The right is dominant CT ANGIOGRAM OF THE NECK: If present, stenosis of the carotid bulbs is measured based on NASCET criteria i.e area of maximum stenosis compared to the cervical ICA distal to the bulb. Scatter atherosclerotic plaque in the aortic arch, the origin of the great vessels is patent. Right Carotid Artery: Scattered coarse mostly calcified atherosclerotic plaque throughout the right common carotid artery up to the level of the bifurcation, with near-complete occlusion at this level. Mild stenoses of the right carotid bulb (less than 50%). The most cephalic segment of the internal carotid artery is patent. Left carotid artery: Severe stenoses of the left common carotid artery approximately 5 cm from the origin. Extensive mostly coarse calcified atherosclerotic plaque in the left carotid bifurcation and carotid bulb with near complete occlusion of the common carotid artery at the bifurcation level, there is also severe stenoses of the left carotid bulb (greater than 70%). The most cephalic segment of the internal carotid artery is patent Vertebral Arteries: Mild diffuse narrowing and irregularity of the left vertebral artery, with poor opacification of the distal V2 and proximal V3 segments likely related to stenoses, there is distal reconstitution. The right vertebral artery is normal in morphology and caliber. Incidental findings: Chronic multilevel degenerative changes of the cervical spine with minimal spondylolisthesis at C3-C4 and C7-T1. IMPRESSION: 1. Severe stenosis of the left common carotid artery approximately 5 cm distal to the origin. 2. 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 3. Severe stenoses of the left carotid bulb (greater than 70%). 4. Mild stenoses of the right carotid bulb (less than 50%). 5. 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 6. No significant abnormalities of the [place]. Signed by: Dr. Rhea Giles M.D. on 11/14/2017 1:52 PM Dictated By: RHEA GILES MD [id number] Transcribed By: ABBI on 11/14/17 1352 COPY TO: MALINA CONTRERAS MD SHOULDER RIGHT COMPLETE 2017-10-29 10:27:00 [place] [id number] Patient Name: ZEN DOYLE MR #: [id number] : 1950 Age/Sex: 67/M Req #: [id number] Adm Physician: Ordered by: SHELLIE NAVA, JING Scott MD Report #: [id number] Location: [facility] Room/Bed: Procedure: [id number] DX/SHOULDER RIGHT COMPLETE Exam Date: 10/29/17 Exam Time: 0920 REPORT STATUS: Signed PROCEDURE: X-RAY RIGHT SHOULDER, COMPLETE COMPARISON: None. INDICATIONS: SHOULDER PAIN FINDINGS: There is mild joint space narrowing. There are no fractures, dislocations, lytic or blastic lesions. The bones are demineralized. The soft-tissues are unremarkable. CONCLUSION: Mild joint space narrowing. Dorian Vasquez D.O. Dictated by: Dorian Vasquez D.O. on 10/29/2017 at 10:27 Electronically approved by: Dorian Vasquez D.O. on 10/29/2017 at 10:27 Dictated By: DORIAN VASQUEZ DO 1027 Transcribed By: PHILLIP on 10/29/17 1027 COPY TO: JING HENSLEY
[2018-02-28 17:53] LABS: BASOPHILS % 0.7 % (0.0-1.0); EOSINOPHILS # (AUTO) 0.3 (0.0-0.4); EOSINOPHILS % 4.6 % (0.0-6.0); HEMATOCRIT 30.8 % (38.2-49.6); HEMOGLOBIN 9.9 g/dL (14.0-18.0); LYMPHOCYTES % 16.7 % (18.0-39.1); MEAN CORPUSCULAR HEMOGLOBIN 25.8 pg (28-32); MEAN CORPUSCULAR HGB CONC 32.1 g/dL (31-35); MEAN CORPUSCULAR VOLUME 80.4 fL (81-99); MONOCYTES # (AUTO) 0.4 (0.2-0.8); MONOCYTES % 6.8 % (4.4-11.3); NEUTROPHILS # (AUTO) 4.3 (2.1-6.9); NEUTROPHILS % 70.5 % (38.7-80.0); PLATELET COUNT 282 x10e3/uL (140-360); RED BLOOD COUNT 3.83 x10e6/uL (4.3-5.7); RED CELL DISTRIBUTION WIDTH 15.5 % (11.7-14.4)
--- NOTE | 2018-02-28 17:54 | Diagnostic Imaging Report ---
History:Dysphagia Comparison studies: Cervical and intracranial CTA's on 11/13/2017 Technique: Axial images were obtained from the skull base to the vertex. Coronal and sagittal images reconstructed from the axial data. Dose modulation, iterative reconstruction, and/or weight based adjustment of the mA/kV was utilized to reduce the radiation dose to as low as reasonably achievable. Intravenous contrast: None Findings: Scalp/skull: No abnormalities. Extra-axial spaces: No masses. No fluid collections. Brain sulci: Moderately prominent. Ventricles: Moderate compensatory dilatation. No hydrocephalus. Parenchyma: Cortical encephalomalacic changes (left orbitofrontal and bilateral anterior temporal, the result of previous trauma. Subtle superimposed hypodensities in the supratentorial white matter are small vessel ischemic changes. No masses, hemorrhage, acute or chronic cortical vascular insults. Sellar/suprasellar region: No abnormalities. Craniocervical junction: Patent foramen magnum. No Chiari one malformation. Incidental findings: Atherosclerotic calcifications in the carotid siphons . Impression: No acute abnormalities. Chronic findings: 1. Moderate generalized volume loss. 2. Mild supratentorial white matter small vessel ischemic changes. 3. Cortical posttraumatic changes (left orbitofrontal and bilateral anterior temporal). Signed by: Dr. Sung Zhang M.D. on 02/28/2018 5:50 PM
[2018-02-28 18:06] LABS: INR 0.94; PROTHROMBIN TIME 13.4 seconds (11.9-14.5)
[2018-02-28] MEDS: SODIUM CHLORIDE 0.9% 1000ML 1,000 ML IV SCH ×3 (18:10→20:18)
[2018-02-28 18:19] LABS: ALANINE AMINOTRANSFERASE 11 IU/L (0-55); ALBUMIN/GLOBULIN RATIO 0.8 (0.8-2.0); ALKALINE PHOSPHATASE 79 IU/L (40-150); ANION GAP 15.9 mmol/L (8-16); BLOOD UREA NITROGEN 16 mg/dL (7-26); BUN/CREATININE RATIO 21 (6-25); CALCIUM 9.3 mg/dL (8.4-10.2); CARBON DIOXIDE 23 mmol/L (22-29); CHLORIDE 96 mmol/L (98-107); CREATINE KINASE 20 IU/L (30-200); CREATININE, SERUM 0.78 mg/dL (0.72-1.25); EST GLOMERULAR FILTRATION RATE > 60 ML/MIN (60-); GLUCOSE 151 mg/dL (74-118); POTASSIUM 3.9 mmol/L (3.5-5.1); SODIUM 131 mmol/L (136-145)
[2018-02-28 18:49] LABS: CARBAMAZEPINE (TEGRETOL) 9.01 ug/mL (4.0-12.0)
[2018-02-28] MEDS ORDERED: PLAVIX75 MG PO (19:09)
[2018-02-28] MEDS ORDERED: DEPAKENE250 MG/5 M PO (19:09)
[2018-02-28] MEDS ORDERED: TEGRETOL200 MG PO (19:09)
--- NOTE | 2018-02-28 19:17 | Diagnostic Imaging Report ---
CHEST SINGLE (PORTABLE), 02/28/2018 5:20 PM Technique: CHEST SINGLE (PORTABLE) Comparison: CT 01/26/2018 Clinical history: Shortness of breath Findings: See Impression Impression: 1. Prominent cardiomediastinal silhouette, accentuated by portable technique. 2. Hyperinflation. Motion artifact with minimal bibasilar vascular crowding/atelectasis. 3. Trace right effusion, stable. Right lung apex partially excluded from view. Signed by: Dr Jaz Morales MD on 02/28/2018 7:13 PM
[2018-02-28 19:22] LABS: COLOR,URINE YELLOW (YELLOW)
[2018-02-28 19:23] LABS: CLARITY,URINE CLEAR (CLEAR); KETONES,URINE NEGATIVE (NEGATIVE); LEUKOCYTE ESTERASE ,URINE NEGATIVE (NEGATIVE); NITRITE,URINE NEGATIVE (NEGATIVE); PROTEIN,URINE DIPSTICK NEGATIVE (NEGATIVE); URINE UROBILINOGEN 0.2 mg/dL (0.2 - 1)
[2018-02-28 19:24] LABS: BILIRUBIN,URINE NEGATIVE (NEGATIVE)
[2018-02-28 19:33] LABS: BACTERIA,URINE FEW /HPF; EPITHELIAL CELLS,URINE FEW /LPF; RBC,URINE 0-5 /HPF (0-5); WBC,URINE (MAN) 0-5 /HPF (0-5)
[2018-02-28] MEDS ORDERED: ASPIRIN 81 MG CHEW TAB PO ONE (19:45)
[2018-02-28] MEDS ORDERED: ONDANSETRON HCL INJ 2 MG/ML VIAL IV PRN (19:45)
[2018-02-28] MEDS ORDERED: FAMOTIDINE 20 MG TAB PO SCH (20:00)
[2018-02-28] MEDS: DEPAKOTE DELAYED-RELEASE TAB 500 MG PO SCH (21:14)
[2018-02-28 22:00] VITALS: BP_SYST 102; BP_SYST 111; BP_DIAS 55; BP_DIAS 59
[2018-02-28 23:50] VITALS: BP 111/59
[2018-03-01] VITALS (7 sets, daily range): BP systolic 102–147; BP diastolic 55–67
[2018-03-01 01:29] LABS: CREATINE KINASE MB 0.6 ng/mL (0-5.0)
[2018-03-01] MEDS: SODIUM CHLORIDE 0.9% 1000ML 1,000 ML IV SCH ×4 (05:45→22:28)
[2018-03-01 06:42] LABS: EOSINOPHILS # (AUTO) 0.1 (0.0-0.4); HEMATOCRIT 31.9 % (38.2-49.6); LYMPHOCYTES # (AUTO) 0.8 (1.0-3.2); MEAN CORPUSCULAR HEMOGLOBIN 26.1 pg (28-32); MEAN CORPUSCULAR HGB CONC 31.3 g/dL (31-35); MEAN CORPUSCULAR VOLUME 83.3 fL (81-99); MONOCYTES # (AUTO) 0.3 (0.2-0.8); MONOCYTES % 7.5 % (4.4-11.3); NEUTROPHILS # (AUTO) 2.7 (2.1-6.9); PLATELET COUNT 221 x10e3/uL (140-360); RED BLOOD COUNT 3.83 x10e6/uL (4.3-5.7); RED CELL DISTRIBUTION WIDTH 15.5 % (11.7-14.4)
[2018-03-01 07:03] LABS: ANION GAP 12.2 mmol/L (8-16); BLOOD UREA NITROGEN 11 mg/dL (7-26); BUN/CREATININE RATIO 17 (6-25); CALCIUM 8.9 mg/dL (8.4-10.2); CARBON DIOXIDE 25 mmol/L (22-29); CHLORIDE 101 mmol/L (98-107); CHOL/HDL RATIO 4.4 (3.9-4.7); CHOLESTEROL 146 MD/DL (0-199); CREATININE, SERUM 0.63 mg/dL (0.72-1.25); EST GLOMERULAR FILTRATION RATE > 60 ML/MIN (60-); GLUCOSE 95 mg/dL (74-118); HDL CHOLESTEROL 33 MG/DL (40-60); LDL CHOLESTEROL 95 MG/DL (60-130); POTASSIUM 4.2 mmol/L (3.5-5.1); SODIUM 134 mmol/L (136-145); TRIGLYCERIDES 89 MG/DL (0-149)
[2018-03-01] MEDS ORDERED: CLOPIDOGREL BISULFATE 75 MG TAB PO SCH (09:00)
[2018-03-01] MEDS ORDERED: VALPROATE 250MG/5ML ORAL LIQ 5ml PO SCH (09:00)
[2018-03-01] MEDS: CLOPIDOGREL BISULFATE 75 MG TAB PO SCH (09:30)
[2018-03-01] MEDS: CARBAMAZEPINE 200 MG TAB PO SCH ×2 (09:30→15:35)
[2018-03-01] MEDS: DEPAKOTE DELAYED-RELEASE TAB 500 MG PO SCH ×2 (09:30→15:35)
[2018-03-01] MEDS: ASPIRIN 81 MG ENTERIC COATED PO SCH (09:30)
[2018-03-01] MEDS: FAMOTIDINE 20 MG TAB PO SCH ×2 (09:30→21:06)
[2018-03-01 10:03] LABS: CREATINE KINASE MB 0.6 ng/mL (0-5.0)
--- NOTE | 2018-03-01 11:01 | History and Physical ---
CHIEF COMPLAINT: Transient dizziness, loss of speech, and leg weakness. PRIMARY CARE PHYSICIAN: Dr. Josafat Perez. HISTORY OF PRESENT ILLNESS: The patient is a 67-year-old man. He recently saw me in the office because of bilateral pulmonary infiltrates on the chest CT. Subsequent evaluation showed abnormal swallowing test and aspiration pneumonia. He was planning to attending speech therapy here at [facility]. He also has a history of bilateral carotid artery stenosis. His right carotid artery is 70% occluded and his left carotid artery is 100% occluded. He also has subclavian stenosis on the left side as well as some peripheral vascular disease in the lower extremities. He was seeing a music researcher recently, but the music researcher retired. He is also scheduled to see Dr. Reyes for evaluation for a carotid endarterectomy. The patient noted the abrupt onset of bilateral leg weakness and unsteadiness last night. He also complained of dizziness and difficulty speaking. He felt as if he were going to pass out. His rubbed some alcohol on his neck and gave him a soft drink, which apparently helped. He then went to the ER and was admitted for a transient ischemic attack. PAST MEDICAL HISTORY 1. Bilateral carotid artery stenosis, 70% on the right and 100% on the left. 2. Subclavian artery stenosis. 3. Seizure disorder. 4. Recurrent aspiration pneumonitis. PAST SURGICAL HISTORY: Noncontributory. ALLERGIES: THE PATIENT HAS NO KNOWN DRUG ALLERGIES. REVIEW OF SYSTEMS: He has no fever or headache. He did have some transient dizziness. He does not complain of neck pain. He is not complaining of chest pain or difficulty breathing. He has no abdominal pain. There is no nausea or vomiting. He has transient weakness in his legs as well as in his speech; this has resolved. PHYSICAL EXAMINATION VITAL SIGNS: The blood pressure is 102/55 and the saturation is 89%. The pulse is 89. HEENT: Shows no facial swelling or erythema. The nasal mucosa is normal. The oropharynx is normal. LYMPHATIC: Shows no submandibular, cervical, or supraclavicular adenopathy. CARDIAC: Reveals regular rate and rhythm with a normal S1 and S2. There are no murmurs or rubs. LUNGS: Auscultation of the lungs reveals a few crackles at the bases. There is no wheezing. ABDOMEN: Soft, nontender. There is no rebound or guarding. EXTREMITIES: Show possible peripheral vascular disease in the lower extremities. RADIOGRAPHIC DATA: Chest x-ray shows minimal bibasilar atelectasis and possibly a trace right pleural effusion. A CT scan of the chest showed scattered ground-glass opacities consistent with basal atelectasis. Recent swallowing evaluation showed episodes of aspiration and penetration. LABORATORY DATA: Hemoglobin is 10 with an MCV of 83.3 and the platelet count is 221. The other electrolytes are within normal limits. IMPRESSION 1. Transient ischemic attack with established carotid artery disease. 2. Subclavian artery stenosis. 3. Peripheral vascular disease. 4. Recurrent aspiration pneumonitis. PLAN 1. Patient will be evaluated by cardiology as well as CT surgery. The patient may need a carotid endarterectomy. 2. Continue Plavix. 3. Neurology evaluation. 4. Physical therapy. 5. Speech therapy. Job#: [id number] GUERO
[2018-03-01] MEDS ORDERED: MIRTAZAPINE15 MG PO (13:43)
[2018-03-01] MEDS ORDERED: DIVALPROEX SOD500 M1 PO (13:43)
[2018-03-01] MEDS ORDERED: CEFDINIR300 MG PO (13:44)
[2018-03-01] MEDS: NAPROXEN 250 MG TAB PO PRN ×2 (15:35→21:07)
--- NOTE | 2018-03-01 23:11 | Consultation ---
DATE OF CONSULTATION: March 01, 2018 CARDIOLOGY CONSULTATION REASON FOR CONSULTATION: Carotid disease, possible TIA. HISTORY OF PRESENT ILLNESS: Mr. Allen is a pleasant 67-year-old man with history of hypertension, dyslipidemia, strong history of smoking over 50 years, he has quit since, history of seizure disorder, known carotid disease with occlusion of left internal carotid artery and significant stenosis of the right internal carotid artery. He presents to [facility] with complaints of slurred speech as noted by family members along with unsteady gait, episode lasts approximately 20 minutes. Upon evaluation by the emergency department, he was not observed to have any focal residual speech deficit or focal weakness. He describes chronic stable dyspnea on exertion to moderate activity associated with some chest heaviness. He denies any recent cardiac evaluation. He denies any prior history of heart attacks or stroke that he can report, but does complain of a prior history of seizures. He has been evaluated in the past for carotid disease and is scheduled for possible evaluation by Dr. Reyes for carotid endarterectomy. Discussing with family members and patient, he has been having some issues with independence and maintaining activities of daily living. He needs assistance with preparing his meals. He is able to eat on his own, however, with some difficulty and he is using a walker to get around. Imaging studies are concerning for evaluated for unsteady gait, which he describes to bilateral lower extremities. He is also has episode s of dizziness. He denies any syncopal episodes since this is resolved after reportedly rubbed some alcohol on his neck, then given Coke, which the patient describes helped. He currently has no complaints other than have been discussed. ALLERGIES: NO KNOWN DRUG ALLERGIES. PAST MEDICAL HISTORY: Carotid artery stenosis, 20% on right, 100% on left per previous reports, subclavian artery stenosis, seizure disorder, aspiration pneumonitis. SURGICAL HISTORY: Noncontributory. FAMILY HISTORY: Hypertension, dyslipidemia, otherwise noncontributory. SOCIAL HISTORY: Former smoker over 50 pack years. Occasional alcohol. No drugs. Quit smoking. PHYSICAL EXAM VITALS: Temperature 98.7, heart rate 89, respiratory rate 20, blood pressure 102/55, respiratory rate 20, O2 sat 98%. GENERAL: In no acute distress, chronically ill appearing, seems somewhat confused. Some of the information obtained from family. Does initiate response, however, seems to stagger and he currently has family assist with answers. NECK: No JVD. Has carotid bruits bilaterally, most pronounced to left. CHEST: Scattered rales in the bases. CARDIOVASCULAR: Regular rate and rhythm. Normal S1 and S2. No S3 or S4. No murmurs or rubs. ABDOMEN: Nontender. EXTREMITIES: No edema. Decreased pulses, bilateral lower extremities. STUDIES: Reviewed. Creatinine is 0.6, potassium 4.2, bicarbonate 25, hemoglobin of 10, platelets 221,000, white blood cells 4, INR 0.9. AST 13, ALT 11. Echocardiogram with left ventricular systolic function 60% -65%. Impaired LV relaxation, age appropriate. Mild concentric hypertrophy. That was on 03/01/2018. The carotid Doppler, which suggests elevated velocity to the right common carotid artery at 244 cm per second suggestive of critical stenosis, more than 75%, on the right internal carotid artery concerning for at least [id number] stenosis about 50%-69% by velocity, velocities to right external carotid artery. The antegrade flow to right vertebral and left vertebral showing retrograde flow. The left common carotid artery with critical stenosis at the bifurcation area also of the bulb with critical stenosis, left internal carotid artery with severe stenosis by Doppler. His lower extremity arterial Doppler suggests right [employer] stenoses, monophasic waveforms in the right femoral artery suggesting of hemodynamically significant femoral disease. CTA with aortoiliac femoral disease, which is severe bilaterally and subclavian stenosis also reported on CT of chest with moderate emphysematous changes and right hilar lymphadenopathy, also observed the left subclavian artery stenosis and bilateral carotid stenosis are notable with left subclavian stenosis seemingly preceding the vertebral artery. ASSESSMENT 1. Severe carotid and subclavian artery disease with retrograde flow noted to left vertebral artery concerning for steal phenomenon. 2. Chest pain/shortness of breath in the setting of emphysema and high suspicion for angina pectoris with no recent evaluation. 3. Significant deconditioning. 4. Aspiration pneumonia, suspected, undergoing speech pathology evaluation. 5. Issues with memory, also of concern (undiagnosed dementia vascular?). 6. Anemia. 7. Severe peripheral arterial disease, bilateral iliofemoral vessels. RECOMMENDATIONS 1. Add atorvastatin at 40 mg daily with plans to upscale to 80 mg daily if tolerated. 2. Agree with antiplatelet. 3. Neurology evaluation is being requested and is pending. 4. Appreciate input. 5. Cardiovascular surgery has been consulted and will evaluate further. Will coordinate care with rest of attending physicians. Will be available for angiogram as needed to further assess anatomy for possible endovascular intervention or surgical intervention if need be. Overall, the patient has a guarded prognosis. with rehab/physical therapy, occupational therapy is advised at this point. Thank you, Dr. Alcantar, for the opportunity to participate in the care of Mr. Allen. We will follow the patient with you. Job#: [id number] CQ
[2018-03-02] VITALS (8 sets, daily range): BP systolic 132–152; BP diastolic 62–70
[2018-03-02] MEDS: SODIUM CHLORIDE 0.9% 1000ML 1,000 ML IV SCH ×2 (08:25→18:16)
[2018-03-02] MEDS: CARBAMAZEPINE 200 MG TAB PO SCH ×2 (08:36→18:11)
[2018-03-02] MEDS: ASPIRIN 81 MG ENTERIC COATED PO SCH (08:36)
[2018-03-02] MEDS: CLOPIDOGREL BISULFATE 75 MG TAB PO SCH (08:36)
[2018-03-02] MEDS: FAMOTIDINE 20 MG TAB PO SCH ×2 (08:36→22:30)
[2018-03-02] MEDS: DEPAKOTE DELAYED-RELEASE TAB 500 MG PO SCH ×2 (08:36→18:11)
[2018-03-02] MEDS ORDERED: SODIUM CHLORIDE 0.9% IV ONE (18:00)
[2018-03-02] MEDS ORDERED: VALPROATE SOD IV ONE (18:00)
--- NOTE | 2018-03-02 18:47 | Progress Note ---
DATE: March 02, 2018 CARDIOLOGY PROGRESS NOTE SUBJECTIVE: No new complaints today. Coordinating care with neurology. Patient was seen by CV surgery. Significant weight loss. Significant history of smoking. Denies chest pain or shortness of breath today. OBJECTIVE VITALS: Temperature 98.2, heart rate 87, respiratory rate 14, blood pressure 137/63, O2 sat 95% on room air. GENERAL: In no acute distress. NECK: No JVD. Carotid bruits noted bilaterally. CARDIOVASCULAR: Regular rate and rhythm. Normal S1 and S2. ABDOMEN: Soft. EXTREMITIES: Decreased pulses. CARDIOVASCULAR MEDICATIONS 1. Clopidogrel 75 mg daily. 2. Aspirin 81 mg daily. 3. Lovenox 40 mg subcutaneous daily. 4. Atorvastatin 40 mg nightly. STUDIES: Reviewed. None for today. TELEMETRY: Sinus rhythm. ASSESSMENT 1. 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 2. Aspiration pneumonia. 3. Deconditioning. 4. Chest pain and shortness of breath in the setting of emphysema and high suspicion for angina pectoris. 5. Memory issues concerning for undiagnosed vascular dementia. 6. Anemia. 7. Weight loss, unclear etiology. RECOMMENDATIONS: Will discuss with Dr. Alcantar. At this point, consider possibility of stress testing for further perioperative evaluation. Neurology ordering MRI and CT angiogram head and neck to further assess anatomy. Presentation is concerning for posterior fossa TIA or CVA. Further workup depending on initial findings. Weight loss evaluation ongoing, too. Will follow along with you. Job#: [id number]
--- NOTE | 2018-03-02 19:53 | Diagnostic Imaging Report ---
History: Near syncope, rule out TIA. Comparison studies: CT brain from 02/28/2018 and CTA head from 11/13/2017. Technique: Sagittal T2; axial DWI, FLAIR, GRE, T2, T1, Coronal FLAIR. Intravenous contrast: None Findings: Scalp: Normal in signal . No masses . Bone marrow: Normal in signal intensity. Brain sulci: Prominent. Ventricles: Moderate compensated dilatation due to volume loss . No hydrocephalus . Parenchyma: Cortical-based hypodensity in left orbitofrontal gyrus, anterior aspect of bilateral (left more than right) temporal lobe represents chronic encephalomalacia, possibly a sequel of prior trauma. Nonspecific bilateral frontoparietal patchy white matter T2/FLAIR hyperintense foci as well as subtle T2/FLAIR hyperintense foci in the monica represents small vessel ischemic changes. Old lacunar infarct in bilateral manrique radiata. No masses, hemorrhage, acute vascular insult. Suprasellar region: No abnormalities. Craniocervical junction: Patent foramen magnum. No Chiari malformation . Vessels: Normal flow-voids in the arteries and sinuses. IMPRESSION: 1. No acute intracranial abnormality. 2. Moderate generalized cerebral volume loss. 3. Chronic encephalomalacia in left orbitofrontal gyrus and bilateral temporal lobe, sequelae of prior trauma. 4. Mild supratentorial white matter microvascular ischemic changes. Signed by: Dr. Joanie Loomis M.D. on 03/02/2018 7:50 PM
--- NOTE | 2018-03-02 21:56 | Consultation ---
DATE OF CONSULTATION: March 02, 2018 NEUROLOGY CONSULT NOTE HISTORY OF PRESENT ILLNESS: Mr. Gonzales is a 67-year-old right-hand dominant man with past medical history significant for hyperlipidemia, coronary artery disease, prior traumatic brain injury, secondary seizure disorder, and peripheral vascular disease, admitted to [facility] on February 28, 2018 with symptoms concerning for a transient ischemic attack. On the day of admission, the patient experienced the sudden onset of slurred speech, dizziness which is further described as lightheadedness, and an unsteady gait with poor balance. Mr. Gonzales does not report a visual field cut or other disturbance, aphasia, facial weakness, hemiparesis, hemihyperesthesia or confusion. The patient does report generalized weakness as well as diffuse joint pain, especially of the hands. Following the sudden onset of the above symptoms, Mr. Gonzales was brought to the emergency center at [facility] by private vehicle for further evaluation. En route, his symptoms resolved. According to the patient's son, the symptoms lasted approximately 30 minutes. Upon admission to the emergency center, the patient was afebrile with a blood pressure 103/67 mmHg and a pulse of 108 beats per minute. His neurological examination was documented as being nonfocal. A CT of the brain without contrast was performed while the patient remained in the emergency center. There is no evidence of recent large territorial ischemia or hemorrhage. Mr. Gonzales was admitted to [facility] for further evaluation and treatment of his transient neurological symptoms. It is unclear if the patient has experienced similar symptoms previously. 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 The patient's son described Mr. Gonzales seizures as follows: The patient abruptly loses consciousness and has generalized tonic-clonic activity affecting both arms and both legs. Tongue biting is usually present. The patient's son denies foaming saliva/drooling or bladder or bowel incontinence. The seizure activity lasts approximately 60 to 90 seconds. Afterwards, the patient is confused and tired. He returned to his neurological baseline in approximately 2 hours. The son is not aware of his father experiencing other types of seizures. Mr. Gonzales takes his antiepileptic medications as prescribed, he may experience 1 seizure in a year. When he does not take his antiepileptic medications, his seizures occur frequently. REVIEW OF SYSTEMS: Diffuse joint pain, especially of the hands, dysarthria, impairment of balance and gait. Otherwise, the 12-point review of systems is negative. PAST MEDICAL HISTORY: Hyperlipidemia, coronary artery disease, prior history of tuberculosis, osteoarthritis, questionable rheumatoid arthritis, secondary seizure disorder, prior traumatic brain injury, bilateral carotid artery stenosis (reportedly 70% on the right and 100% on the left), peripheral vascular disease. PAST SURGICAL HISTORY: None. PAST HOSPITALIZATIONS: Multiple hospitalizations for seizures. FAMILY MEDICAL HISTORY: The patient's paternal and maternal grandparents are . Their medical histories are unknown. The patient's father and mother are . Their medical histories are unknown. Mr. Gonzales had 14 siblings. Two brothers are secondary to gunshot wounds. One brother is from a motor vehicle accident. The remaining siblings are alive. Their medical histories are unknown. Mr. Gonzales has 5 children, 3 sons, and 2 daughters, all of whom are alive and healthy. SOCIAL HISTORY: The patient is . He is retired. Mr. Gonzales reportedly quit smoking cigarettes approximately 4 weeks ago. Prior to this, he had a 54-year history of tobacco use. The patient quit drinking alcohol 22 years ago when he was a "heavy drinker". Over the past several years, the patient has resumed alcohol consumption, but does so socially. There is no reported current or prior recreational drug use. HOME MEDICATIONS 1. Tegretol 200 mg by mouth 3 times daily. 2. Omnicef 300 mg by mouth twice daily for 10 days. 3. Plavix 75 mg by mouth daily. 4. Divalproex sodium ER 1000 mg by mouth daily. 5. Mirtazapine 30 mg by mouth at bedtime daily. ALLERGIES: NO KNOWN DRUG ALLERGIES. NO KNOWN FOOD ALLERGIES. NO KNOWN ALLERGIES TO LATEX. NO KNOWN ALLERGIES TO IODINE OR OTHER CONTRAST MATERIALS. PHYSICAL EXAMINATION VITAL SIGNS: Height 66 inches, weight 145 pounds, BMI 24.0 kg per meter squared. Blood pressure 137/63 mmHg. Pulse 87 beats per minute. Respiratory rate 14 breaths per minute, oxygen saturation 95% on room air. GENERAL: The patient is awake and alert. Does not appear distressed. HEENT: Normocephalic, atraumatic. Pupils are equal, round, and reactive to light. Moist mucous membranes. NECK: Supple. No appreciable thyromegaly. Positive right carotid bruit. Carotid bruits are not appreciated on the left. CARDIOVASCULAR: S1, S2, regular rate and rhythm. No murmurs, rubs, or gallops. RESPIRATORY: Clear to auscultation bilaterally. No wheezes, rhonchi or rales. EXTREMITIES: The skin is warm and dry. No clubbing, cyanosis or edema. The posterior tibial and dorsalis pedis pulses are 1+ and symmetric. SKIN: No rashes or lesions. NEUROLOGIC Memory/Attention: Patient is awake and alert. Oriented to person, place, time, and situation. Cranial Nerves: Cranial nerve I--not tested. Cranial nerve II, III, IV, and --pupils are equal and round, react briskly to light (from 4 mm to 2 mm). Extraocular movements intact. No nystagmus. Cranial nerve V--sensation to light touch and pinprick is intact in the bilateral V1 through V3 distributions. Strength of the temporalis and masseter muscles is within normal limits. Cranial nerve VII--the face is symmetric as are all facial movements. Strength is within normal limits. Cranial nerve VIII--hearing is intact to finger rub bilaterally. Cranial nerve IX, X--the soft palate elevates equally and symmetrically. Cranial nerve XI--normal strength of the bilateral sternocleidomastoid and trapezius muscles. Cranial nerve XII--the tongue protrudes midline and moves symmetrically from side to side. Strength: Bulk is normal. Strength is 5/5 in the bilateral deltoids, biceps, triceps, wrist flexors and extensors, finger flexors and extensors, intrinsic hand muscles, hip flexors, knee flexors and extensors, ankle dorsiflexion and plantar flexion, and intrinsic foot muscles. Tone is normal. DTRs: Deep tendon reflexes are 1+ and symmetric at the triceps, biceps, brachioradialis, and patellas. Deep tendon reflexes are trace and symmetric at the Achilles. Plantar responses are flexor bilaterally. Sensation: Sensation is intact to light touch and pinprick in both arms and both legs. Cerebellar: Yavglx-zveo-cwxxqb and heel-choudhury movements are intact on the left without dysmetria or other impairment. There is mild dysmetria with umsrrd-ljbu-ofrejy movements on the right. Heel-choudhury movements on the right are intact. Gait: Deferred. Speech: Spontaneous speech is normal without appreciable dysarthria or aphasia. Repetition is intact. Involuntary Movements: None. Pronator Drift: None. LABORATORY DATA: The most recent basic metabolic panel is significant for a sodium of 134 and a creatinine of 0.63. Cardiac enzymes are negative times 3. Liver function panel, drawn on 02/28/2018 is unremarkable. Total cholesterol 146, triglycerides 89, LDL cholesterol 95, HDL cholesterol 33. The CBC with differential and platelets revealed a white blood cell count 4.01 with a normal differential. The hemoglobin and hematocrit are 10.0 and 31.9, respectively. The platelet count is 221,000. PT 13.4, INR 0.94, PTT 37.0. A urinalysis was significant for trace blood only, valproic acid level 27. Carbamazepine level 9.01. A urine culture collected on February 28, 2018 reveals no growth between 36 and 48 hours. DIAGNOSTIC STUDIES: Electrocardiogram 02/29/2008: Sinus tachycardia [address] of the brain without contrast 02/28/2018: On my review, there is no evidence of recent large territorial ischemia, hemorrhage, mass or mass effect. There is mild to moderate diffuse cerebral atrophy. There are posttraumatic changes in the left orbitofrontal and bilateral anterior temporal lobes. There are findings compatible with mild supratentorial small vessel ischemic disease. Chest x-ray 02/28/2018 1. Prominent cardiomediastinal silhouette, accentuated by portable technique. 2. Hyperinflation. Motion artifact with minimal bibasilar vascular crowding/atelectasis. 3. Trace right effusion, stable. Right lung apex partially excluded from view. ASSESSMENT AND PLAN: Mr. Gonzales is a 67-year-old right-hand dominant man with past medical history significant for hyperlipidemia, coronary artery disease, carotid artery stenosis, peripheral vascular disease, traumatic brain injury, and secondary seizure disorder, admitted to [facility] on February 28, 2018, with transient neurological deficits as detailed in history of present illness. At present, the patient's neurological examination is significant for mild dysmetria with jrazrl-ixnm-idkldn movements on the right. Otherwise, the neurological examination is nonfocal. The patient's laboratory data and other diagnostic studies have been reviewed and are documented above. In my opinion, the patient's history and findings on his neurological examination are most compatible with either a transient ischemic attack or stroke in the posterior circulation. There is low suspicion for a seizure due to the duration of the symptoms. The description of the patient's symptoms as provided by the patient and his son are not compatible with a semiology of the patient's seizures. RECOMMENDATIONS 1. A hemoglobin A1c will be ordered. 2. A MRI of the brain without contrast will be ordered. 3. A CTA of the brain and neck with contrast will be ordered. 4. Continue with dual antiplatelet therapy (aspirin and Plavix) per cardiology. 5. The patient's blood pressure may be gradually normalized. His goal blood pressure is less than 140/90 mmHg. 6. The patient's total cholesterol is at goal. His LDL is 95, which is greater than the stated goal of 70. Agree with treatment with atorvastatin 40 mg by mouth at bedtime daily. 7. Follow up the results of the hemoglobin A1c. Tight glycemic control is recommended while the patient remains in the hospital. 8. Physical and speech therapies are ordered and pending. 9. GI prophylaxis with Pepcid 20 mg by mouth twice daily with meals. DVT prophylaxis with Lovenox 40 mg subcutaneously daily. 10. As regards to patient's seizure disorder, treatment with the patient's current antiepileptic medications will be continued. It should be noted, the patient's valproic acid level was low on admission. A loading dose of valproic acid 10 mg per kg (approximately), will be administered intravenously once. A repeat valproic acid level will be drawn with morning labs. 11. Defer treatment of the remaining medical comorbidities to the primary and other services following the patient. Thank you for this consultation. I will continue to follow the patient while he remains in the hospital. TIME SPENT: 70 minutes. Job#: [id number] MARIA DEL CARMEN
[2018-03-02] MEDS: ATORVASTATIN 20 MG TAB PO SCH (22:30)
[2018-03-03] VITALS (7 sets, daily range): BP systolic 132–163; BP diastolic 65–72
--- NOTE | 2018-03-03 00:08 | Diagnostic Imaging Report ---
EXAMINATION: CT angio of the neck and head with contrast. HISTORY:Near syncope, rule out TIA. COMPARISON:MRI brain from 03/02/2018, CT brain from 02/28/2018 and CTA head and neck from 11/13/2017. TECHNIQUE: Multidetector helical axial images were acquired through the neck and head during infusion of iodinated contrast material. Images were reviewed in multiplanar and 3-dimensional format. Dose modulation, iterative reconstruction, and/or weight based adjustment of the mA/kV was utilized to reduce the radiation dose to as low as reasonably achievable. Contrast: 100 mL of Isovue-370 . FINDINGS: NECK: If carotid bulb stenosis is present, stenosis is measured with respect to the distal extracranial internal carotid artery. Aortic arch and major vessels: Multifocal scattered nonstenotic atherosclerotic calcifications in the aortic arch and origin of great vessels, particularly bilateral subclavian arteries. Common origin of right brachiocephalic trunk and left common carotid artery. Common carotid arteries: Multifocal scattered hard atherosclerotic plaque throughout the right common carotid artery. Soft atherosclerotic plaque approximately 5 cm distal from the origin of left common carotid artery results in approximately 70% vascular stenosis. A tandem hard atherosclerotic plaque approximately 7.5 mm above approximately results in 75% vascular stenosis in left common carotid artery. Cervical carotid bifurcations: Moderate to severe hard atherosclerotic plaque at the right carotid bulb results in less than 50% stenosis. Hard atherosclerotic plaque at the origin of right external carotid artery results in approximately 60% vascular stenosis. Severe hard atherosclerotic plaque in left carotid bulb with near complete occlusion at the origin of left external carotid artery. There is approximately greater than 70% vascular stenosis of left carotid bulb. Internal carotid arteries: Right: Hard atherosclerotic plaque at the origin of right internal carotid artery just above the bifurcation results in approximately 55% vascular stenosis. Left: Hard atherosclerotic plaque at the origin of left internal carotid artery results in approximately 60% vascular stenosis. Vertebral arteries: Hard atherosclerotic plaque at the origin of right vertebral artery. Mild irregularity in caliber of left vertebral artery with interval improvement in flow in distal V2 and V3 with distal reconstitution. Incidental finding: Moderate right pleural effusion. Subpleural blebs, emphysematous changes and scarring in bilateral lung apices. Multilevel moderate cervical spondylosis. HEAD: Internal carotid arteries: Mild right and moderate left atherosclerotic plaque in carotid siphon. Bilateral anterior and middle cerebral arteries are normal in caliber. Vertebral arteries: Patent. Basilar artery: Patent. Posterior cerebral arteries: Patent. origin of right posterior cerebral artery. Anatomical variants: Anterior communicating artery :Present Posterior communicating arteries: Patent on right, not visualized on left. Vertebral arteries: Dominant right. IMPRESSION: 1. Severe stenosis of left common carotid artery approximately 5 cm distal from the origin. 2. Moderate to severe on the right and severe left hard atherosclerotic plaque in the carotid bulbs. 3. Hard atherosclerotic plaque at the origin of right external carotid artery results in 60% vascular stenosis and near complete occlusion at the origin of left external carotid artery. 4. Hard atherosclerotic plaque at the origin of right internal carotid artery results in 55% vascular stenosis and 60% vascular stenosis on the left. Signed by: Dr. Joanie Loomis M.D. on 03/03/2018 12:05 AM
[2018-03-03] MEDS ORDERED: IOPAMIDOL 370 MG/ML 200 ML INFUS..BTL INJ ONE (00:41)
[2018-03-03] MEDS ORDERED: SODIUM CHLORIDE 0.9% 100 ML 100 ML ONE (00:41)
[2018-03-03] MEDS: CARBAMAZEPINE 200 MG TAB PO SCH ×2 (08:14→17:26)
[2018-03-03] MEDS: ASPIRIN 81 MG ENTERIC COATED PO SCH (08:14)
[2018-03-03] MEDS: SODIUM CHLORIDE 0.9% 1000ML 1,000 ML IV SCH ×2 (08:14→17:27)
[2018-03-03] MEDS: DEPAKOTE DELAYED-RELEASE TAB 500 MG PO SCH ×2 (08:14→17:26)
[2018-03-03] MEDS: FAMOTIDINE 20 MG TAB PO SCH ×2 (08:14→21:15)
[2018-03-03] MEDS: CLOPIDOGREL BISULFATE 75 MG TAB PO SCH (08:14)
[2018-03-03] MEDS: ENOXAPARIN SOD INJ 40 MG/0.4 ML SYR SC SCH (17:26)
--- NOTE | 2018-03-03 17:51 | Progress Note ---
DATE: March 03, 2018 CARDIOLOGY PROGRESS NOTE SUBJECTIVE: No complaints today. Was able to ambulate to the restroom per family report. Denies chest pain or shortness of breath today. Mildly slurred speech noted. OBJECTIVE VITAL SIGNS: Temperature 96.6, heart rate 85, respiratory rate 20, blood pressure 161/68, O2 sat 97% on room air. GENERAL: No acute distress. NECK: A carotid bruit bilaterally. CARDIOVASCULAR: Regular rate and rhythm. Normal S1 and S2. No S3, no S4. No murmurs. CHEST: With decreased breath sounds bilateral bases. ABDOMEN: Soft, nontender. EXTREMITIES: No edema. Decreased pulses. CARDIOVASCULAR MEDICATIONS 1. Clopidogrel 75 mg daily. 2. Aspirin 81 mg daily. 3. Atorvastatin 40 mg nightly. 4. Lovenox 40 mg subcutaneous daily. STUDIES: Reviewed for today. A1c is 5.5. No additional lab work noted. TELEMETRY: In sinus rhythm. IMAGING STUDIES: MRI of brain shows no acute intracranial abnormality, moderate generalized cerebral volume loss, chronic encephalomalacia of the left orbital frontal gyrus with bilateral temporal lobe sequelae of prior trauma, mild supratentorial white matter microvascular ischemic changes. The head and neck CTA are significant for severe stenosis of the left common carotid artery approximately 5 cm distal to the origin, moderate to severe stenosis on the right and severe on the left, hard atherosclerotic plaques in the carotid bulbs, hard atherosclerotic plaque at the origin of the right external carotid artery resulting in 60% vascular stenosis and near complete occlusion at the origin of the left external carotid artery, hard atherosclerotic plaque at the origin of the right internal carotid artery resulting in 55% vascular stenosis and 60% vascular stenosis on the left. Multifocal scattered nonstenotic atherosclerotic calcifications in the aortic arch and origin of the great vessels particularly bilateral subclavian arteries, origin of the right brachiocephalic trunk and left common carotid artery are reported. ASSESSMENT 1. Transient ischemic attack in the setting of severe carotid disease. 2. Peripheral arterial disease, severe. 3. Aspiration pneumonia. 4. Deconditioning. 5. Memory issues. 6. Anemia. 7. Weight loss of unclear etiology, pending further workup. 8. Chest pain and shortness of breath in the setting of emphysema and high suspicion for angina pectoris, stable. RECOMMENDATIONS: Neurologic assessment and impression concerning for TIA over the posterior fossa circulation. However, subclavian arteries on CTA reportedly nonsevere stenotic albeit with calcifications. Does have significant carotid disease which is advanced and multilevel and heavily calcified. He also reports symptoms concerning for unstable angina. Will coordinate with CV Surgery who is consulted on the case regarding the next steps of care. Overall the patient has guarded prognosis. Physical therapy and speech evaluation are advised at this point. Optimize medically and will reassess possible surgical or endovascular alternatives depending on coordination of care with other treating physicians. Job#: [id number] EV
[2018-03-03] MEDS: ATORVASTATIN 20 MG TAB PO SCH (21:15)
[2018-03-04] VITALS (8 sets, daily range): BP systolic 102–167; BP diastolic 60–70
[2018-03-04] MEDS: SODIUM CHLORIDE 0.9% 1000ML 1,000 ML IV SCH ×2 (05:08→14:32)
[2018-03-04] MEDS: FAMOTIDINE 20 MG TAB PO SCH ×2 (08:00→20:41)
[2018-03-04] MEDS: ASPIRIN 81 MG ENTERIC COATED PO SCH (09:00)
[2018-03-04] MEDS: CARBAMAZEPINE 200 MG TAB PO SCH ×2 (09:00→17:46)
[2018-03-04] MEDS: CLOPIDOGREL BISULFATE 75 MG TAB PO SCH (09:00)
[2018-03-04] MEDS: DEPAKOTE DELAYED-RELEASE TAB 500 MG PO SCH ×2 (09:00→17:46)
[2018-03-04] MEDS: ENOXAPARIN SOD INJ 40 MG/0.4 ML SYR SC SCH (17:46)
--- NOTE | 2018-03-04 19:42 | Progress Note ---
DATE: March 04, 2018 CARDIOLOGY PROGRESS NOTE SUBJECTIVE: No complaints. OBJECTIVE VITAL SIGNS: Temperature 96.5, heart rate 109, respiratory rate 20, blood pressure 139/64, O2 sat 92% on room air. GENERAL: No acute distress. NECK: Carotid bruits bilaterally. CARDIOVASCULAR: Regular rate and rhythm. Normal S1 and S2. No S3, no S4. ABDOMEN: Soft. EXTREMITIES: Decreased pulses in bilateral lower extremities. CARDIOVASCULAR MEDICATIONS 1. Clopidogrel 75 mg daily. 2. Aspirin 81 mg daily. 3. Atorvastatin 40 mg nightly. 4. Lovenox 40 mg subcutaneous daily. Recumbent blood pressure as follows: Right upper extremity, 139/63, left upper extremity 104/64, right lower extremity 93/53 and left lower extremity 119/58. Discussed imaging findings with radiology. TELEMETRY: In sinus rhythm. ASSESSMENT 1. Transient ischemic attack posterior fossa circulation in the setting of carotid disease and severe subclavian stenosis with retrograde flow by Doppler noted to left vertebral artery, concerning for a steal. 2. Peripheral arterial disease, severe. 3. Aspiration pneumonia. 4. Deconditioning. 5. Memory issues. 6. Anemia. 7. Weight loss of unclear etiology. 8. Chest pain in the setting of emphysema and high suspicion for stable angina. RECOMMENDATIONS: At this point in time, will discuss with patient's family members, possible angiography and endovascular intervention to the left subclavian artery. If confirmed steal phenomenon and severe critical stenosis in the left subclavian artery, this seems to be most consistent with the patient's findings of posterior fossa circulation symptoms. Critical carotid disease at a later date after continuing physical therapy reconditioning. The patient to follow up with CV surgery for further assessment. Will need further risk stratification prior to additional interventions at a later date. Discussed the case with rest of treating physicians. Job#: [id number] KAILEY JOYCE
[2018-03-04] MEDS: ATORVASTATIN 40 MG TAB PO SCH (20:42)
[2018-03-05] VITALS (8 sets, daily range): BP systolic 134–156; BP diastolic 52–74
[2018-03-05] MEDS: SODIUM CHLORIDE 0.9% 1000ML 1,000 ML IV SCH ×3 (00:42→19:45)
[2018-03-05] MEDS: FAMOTIDINE 20 MG TAB PO SCH ×2 (08:05→20:52)
[2018-03-05] MEDS: CARBAMAZEPINE 200 MG TAB PO SCH ×2 (08:22→17:31)
[2018-03-05] MEDS: CLOPIDOGREL BISULFATE 75 MG TAB PO SCH (08:22)
[2018-03-05] MEDS: DEPAKOTE DELAYED-RELEASE TAB 500 MG PO SCH ×2 (08:25→17:31)
[2018-03-05] MEDS: ASPIRIN 81 MG ENTERIC COATED PO SCH (08:42)
[2018-03-05] MEDS: ENOXAPARIN SOD INJ 40 MG/0.4 ML SYR SC SCH (17:31)
[2018-03-05] MEDS: ATORVASTATIN 40 MG TAB PO SCH (20:52)
[2018-03-06] VITALS (16 sets, daily range): BP systolic 102–155; BP diastolic 57–72
[2018-03-06 05:54] LABS: BASOPHILS % 0.4 % (0.0-1.0); EOSINOPHILS # (AUTO) 0.1 (0.0-0.4); EOSINOPHILS % 1.4 % (0.0-6.0); HEMATOCRIT 28.6 % (38.2-49.6); HEMOGLOBIN 9.6 g/dL (14.0-18.0); LYMPHOCYTES # (AUTO) 1.3 (1.0-3.2); LYMPHOCYTES % 23.7 % (18.0-39.1); MEAN CORPUSCULAR HEMOGLOBIN 26.1 pg (28-32); MEAN CORPUSCULAR HGB CONC 33.6 g/dL (31-35); MEAN CORPUSCULAR VOLUME 77.7 fL (81-99); MONOCYTES # (AUTO) 0.5 (0.2-0.8); MONOCYTES % 9.3 % (4.4-11.3); NEUTROPHILS # (AUTO) 3.6 (2.1-6.9); NEUTROPHILS % 64.8 % (38.7-80.0); PLATELET COUNT 230 x10e3/uL (140-360); RED BLOOD COUNT 3.68 x10e6/uL (4.3-5.7)
[2018-03-06 06:14] LABS: ANION GAP 11.6 mmol/L (8-16); BLOOD UREA NITROGEN 10 mg/dL (7-26); BUN/CREATININE RATIO 17 (6-25); CALCIUM 8.7 mg/dL (8.4-10.2); CARBON DIOXIDE 26 mmol/L (22-29); CHLORIDE 101 mmol/L (98-107); CREATININE, SERUM 0.59 mg/dL (0.72-1.25); EST GLOMERULAR FILTRATION RATE > 60 ML/MIN (60-); GLUCOSE 101 mg/dL (74-118); POTASSIUM 3.6 mmol/L (3.5-5.1); SODIUM 135 mmol/L (136-145)
[2018-03-06] MEDS: FAMOTIDINE 20 MG TAB PO SCH ×2 (08:00→20:58)
[2018-03-06] MEDS ORDERED: VERAPAMIL HCL 2.5 MG/ML 2 ML VIAL ONE (08:33)
[2018-03-06] MEDS ORDERED: IOPAMIDOL 300MG/ML 100 ML INFUS..BTL IV ONE (08:48)
[2018-03-06] MEDS ORDERED: IOPAMIDOL 370 MG/ML 200 ML INFUS..BTL INJ ONE (08:55)
[2018-03-06] MEDS: DEPAKOTE DELAYED-RELEASE TAB 500 MG PO SCH ×2 (09:00→16:48)
[2018-03-06] MEDS: CARBAMAZEPINE 200 MG TAB PO SCH ×2 (09:00→16:48)
[2018-03-06] MEDS ORDERED: ASPIRIN 325 MG TAB ONE (09:37)
[2018-03-06] MEDS ORDERED: CLOPIDOGREL BISULFATE 75 MG TAB ONE ×2 (09:37→09:38)
[2018-03-06] MEDS: SODIUM CHLORIDE 0.9% 1000ML 1,000 ML IV SCH ×2 (15:41→19:49)
[2018-03-06] MEDS: ATORVASTATIN 40 MG TAB PO SCH (21:10)
[2018-03-07 00:31] VITALS: BP 149/74
[2018-03-07 04:00] VITALS: BP 152/63
[2018-03-07 08:24] VITALS: BP 124/58
[2018-03-07] MEDS: SODIUM CHLORIDE 0.9% 1000ML 1,000 ML IV SCH (08:55)
[2018-03-07] MEDS ORDERED: CLOPIDOGREL BISULFATE 75 MG TAB PO SCH (09:00)
[2018-03-07] MEDS ORDERED: ASPIRIN 81 MG CHEW TAB PO SCH (09:00)
[2018-03-07] MEDS: DEPAKOTE DELAYED-RELEASE TAB 500 MG PO SCH (09:19)
[2018-03-07] MEDS: FAMOTIDINE 20 MG TAB PO SCH (09:19)
[2018-03-07] MEDS: CARBAMAZEPINE 200 MG TAB PO SCH (09:19)
[2018-03-07 10:46] VITALS: BP 124/58
[2018-03-07] MEDS ORDERED: ASPIRIN81 MG PO (11:47)
[2018-03-07 12:16] VITALS: BP 123/56
--- NOTE | 2018-03-07 17:01 | Cardiology Report ---
DATE OF STUDY: March 06, 2018 PLEASE VERIFY ORDER NUMBER PERIPHERAL ANGIOGRAPHY AND INTERVENTION PROCEDURE INDICATION: Vertebrobasilar insufficiency, posterior fossa TIA, vertebral steal syndrome in the setting of left subclavian severe stenosis with significant pressure gradient between upper extremities consistent with hemodynamically significant left subclavian artery stenosis. CHANGE CONTROL COORDINATOR: Dr. Luis James, interventional cardiology. PROCEDURES PERFORMED 1. Selective angiography of left upper extremity vessels. 2. Aortic arch injection. 3. Catheter placement in the aortic arch. 4. Catheter placement third order from left radial artery to aortic arch. 5. Right common femoral artery manual pressure hemostasis. 6. Left radial site TR band hemostasis. 7. CLAIMS CONSULTANT and stent of left subclavian artery with excellent final angiographic results using self-expanding stent. Stent deployed was Valeo 10 mm x 26 mm reference [id number] - [id number]. 8. Nonselective extracranial carotid artery angiography. 9. Nonselective vertebral artery angiography bilaterally. COMPLICATIONS: None. ESTIMATED BLOOD LOSS: Less than 15 mL. PROCEDURE SUMMARY: After consent was obtained, patient was prepped and draped in a sterile fashion and the right femoral site was locally infiltrated with 2% lidocaine. Access was obtained using micropuncture kit and a 6-British sheath was placed. After initial difficulty maneuvering across the iliac vessels due to significant calcific stenosis, 4-British pigtail catheter was used along with Wholey wire, which we were able to cross the areas of stenosis. Aortic arch injections were performed with digital subtraction to confirm left subclavian artery stenosis and anatomy of the aortic arch which was heavily calcified. It was decided to proceed with obtaining access to the left radial artery with 5-British outer diameter slender sheath after ultrasound assessment confirming adequate size for upgrade. Heparin to maintain ACT over 250, nitroglycerin 300 mcg and verapamil 2.5 mg were administered via the sheath after which exchanged to 7-British sheath was performed on the radial site. This was followed with Ultraverse 4.0 x 20 mm balloon advanced across Wholey wire from the radial approach across the target area of stenosis and inflated to 14 atmospheres. This was followed by Valeo 10 mm x 26 mm balloon expandable stent which was deployed across the target lesion with excellent results. Preprocedure intervention MIGUELITO flow was 3. There was 95% stenosis, no dissections, no perforation. Postprocedure intervention MIGUELITO flow was 3, 0% residual stenosis, no dissections, no perforations. The vertebral artery remained patent with brisk flow in an antegrade fashion postprocedure. The patient did not report any neurologic symptoms throughout the procedure or afterwards. TR band applied at the end of the procedure and manual pressure hemostasis applied to the right femoral site. The following findings were observed. The aortic arch is bovine, heavily calcified, and right brachiocephalic trunk, there is 60% to 70% stenosis. Similarly, in the left common carotid artery, there seems to be 70% to 80% stenosis. The internal carotid arteries are not well visualized; however, it seems that the left internal carotid artery may be occluded. This was nonselective angiography assessment for the carotid arteries in the extracranial portion. The right internal carotid artery seems patent possibly with severe disease of the bulb area; however, it is not clearly visualized. There is heavy calcification in the carotid bulbs bilaterally. The vertebral arteries arise from the subclavian arteries respectively and are patent. The left subclavian artery had 95% stenosis proximal to the left vertebral artery takeoff. This was target lesion, which was treated. CONCLUSION: Successful revascularization of the left subclavian artery via radial approach with excellent final angiographic results. RECOMMENDATIONS 1. Aspirin and Plavix. 2. Outpatient followup after physical therapy, speech therapy, and occupational therapy. Further reassessment for possible staged surgical intervention to the carotid arteries at a later date with suggest awaiting 2 to 3 months as long as clinically stable prior to surgical intervention attempts. We will need preprocedure cardiac risk stratification and further workup. Job#: [id number]
--- NOTE | 2018-03-19 07:10 | Operative Report ---
DATE OF STUDY: March 06, 2018 PERIPHERAL ANGIOGRAPHY AND INTERVENTION PROCEDURE INDICATION: Vertebrobasilar insufficiency, posterior fossa TIA, vertebral steal syndrome in the setting of left subclavian severe stenosis with significant pressure gradient between upper extremities consistent with hemodynamically significant left subclavian artery stenosis. ROOF SHINGLER: Dr. Luis James, interventional cardiology. PROCEDURES PERFORMED 1. Selective angiography of left upper extremity vessels. 2. Aortic arch injection. 3. Catheter placement in the aortic arch. 4. Catheter placement third order from left radial artery to aortic arch. 5. Right common femoral artery manual pressure hemostasis. 6. Left radial site TR band hemostasis. 7. LOCATION AND MEASUREMENT TECHNICIAN and stent of left subclavian artery with excellent final angiographic results using self-expanding stent. Stent deployed was Valeo 10 mm x 26 mm reference [id number] - [id number]. 8. Nonselective extracranial carotid artery angiography. 9. Nonselective vertebral artery angiography bilaterally. COMPLICATIONS: None. ESTIMATED BLOOD LOSS: Less than 15 mL. PROCEDURE SUMMARY: After consent was obtained, patient was prepped and draped in a sterile fashion and the right femoral site was locally infiltrated with 2% lidocaine. Access was obtained using micropuncture kit and a 6-Senegalese sheath was placed. After initial difficulty maneuvering across the iliac vessels due to significant calcific stenosis, 4-Senegalese pigtail catheter was used along with Wholey wire, which we were able to cross the areas of stenosis. Aortic arch injections were performed with digital subtraction to confirm left subclavian artery stenosis and anatomy of the aortic arch which was heavily calcified. It was decided to proceed with obtaining access to the left radial artery with 5-Senegalese outer diameter slender sheath after ultrasound assessment confirming adequate size for upgrade. Heparin to maintain ACT over 250, nitroglycerin 300 mcg and verapamil 2.5 mg were administered via the sheath after which exchanged to 7-Senegalese sheath was performed on the radial site. This was followed with Ultraverse 4.0 x 20 mm balloon advanced across Wholey wire from the radial approach across the target area of stenosis and inflated to 14 atmospheres. This was followed by Valeo 10 mm x 26 mm balloon expandable stent which was deployed across the target lesion with excellent results. Preprocedure intervention MIGUELITO flow was 3. There was 95% stenosis, no dissections, no perforation. Postprocedure intervention MIGUELITO flow was 3, 0% residual stenosis, no dissections, no perforations. The vertebral artery remained patent with brisk flow in an antegrade fashion postprocedure. The patient did not report any neurologic symptoms throughout the procedure or afterwards. TR band applied at the end of the procedure and manual pressure hemostasis applied to the right femoral site. The following findings were observed. The aortic arch is bovine, heavily calcified, and right brachiocephalic trunk, there is 60% to 70% stenosis. Similarly, in the left common carotid artery, there seems to be 70% to 80% stenosis. The internal carotid arteries are not well visualized; however, it seems that the left internal carotid artery may be occluded. This was nonselective angiography assessment for the carotid arteries in the extracranial portion. The right internal carotid artery seems patent possibly with severe disease of the bulb area; however, it is not clearly visualized. There is heavy calcification in the carotid bulbs bilaterally. The vertebral arteries arise from the subclavian arteries respectively and are patent. The left subclavian artery had 95% stenosis proximal to the left vertebral artery takeoff. This was target lesion, which was treated. CONCLUSION: Successful revascularization of the left subclavian artery via radial approach with excellent final angiographic results. RECOMMENDATIONS 1. Aspirin and Plavix. 2. Outpatient followup after physical therapy, speech therapy, and occupational therapy. Further reassessment for possible staged surgical intervention to the carotid arteries at a later date with suggest awaiting 2 to 3 months as long as clinically stable prior to surgical intervention attempts. We will need preprocedure cardiac risk stratification and further workup. Job#: [id number] MAJ JOYCE
--- NOTE | 2018-04-20 05:23 | Discharge Summary ---
DISCHARGE DIAGNOSES 1. Transient ischemic attack. 2. Aspiration pneumonitis secondary to oropharyngeal dysphagia. 3. Carotid artery stenosis. 4. Subclavian artery stenosis. 5. Vertebral artery stenosis. 6. Peripheral vascular disease. 7. History of seizure disorder. CONSULTING PHYSICIANS 1. Dr. James of cardiology. 2. Dr. Reyes of CT surgery. 3. Dr. Collins of neurology. PROCEDURES: Angiography and stent placement in the subclavian artery by Dr. James. RADIOGRAPHIC DATA: Carotid duplex shows absent thrill in the vertebral artery on the left side as well as significant carotid artery stenosis in the right carotid artery and nonobstructive stenosis in the left carotid artery. MRI of the brain shows subacute change consistent with prior strokes. HISTORY OF PRESENT ILLNESS: Patient is a 67-year-old man. He has severe vascular disease including severe peripheral artery disease and an aortic aneurysm. He also has carotid artery disease. He had prior strokes and had prior aspiration pneumonitis. He was receiving speech therapy as an outpatient. He came in with worsening dizziness and lightheadedness. He felt as if he were going to pass out and had some transient difficulty speaking. HOSPITAL COURSE: The patient was admitted with a TIA. He was started on antiplatelet therapy. An MRI showed possible old infarct. Patient's venous duplex studies showed complete occlusion of the left subclavian artery proximal to the takeoff of the vertebral artery. He was seen in consultation by Neurology, Cardiology and Cardiovascular Surgery. He had a peripheral angiogram with a stent placement in the subclavian artery. He tolerated this well. He was continued on antiplatelet therapy. He will follow up with Cardiovascular Surgery for a possible carotid endarterectomy in several months. DISPOSITION: The patient was discharged home. He will follow up with Dr. Hensley as well as with Dr. Reyes of cardiovascular surgery and Dr. James of cardiology. MORRIS PETERS MD Job#: [id number] EV cc:JING HENSLEY MD
== END 2018-03-07 12:58 | disposition home or self-care (01) | DRG 37 ==
LOC: ER 17:07 → INTOOBSV 22:23 → MED/SURG 22:23 → OBSVTOIN 22:23
PROVIDERS: ADMIT Internal Medicine Critical Care Medicine; ATTEND Internal Medicine Critical Care Medicine
PROC: 03743DZ Dilation of Left Subclavian Artery with Intraluminal Device, Percutaneous Approach (ICD-10-PCS; principal; 2018-03-06)
PROC: B3121ZZ Fluoroscopy of Left Subclavian Artery using Low Osmolar Contrast (ICD-10-PCS; 2018-03-06)
PROC: B31G1ZZ Fluoroscopy of Bilateral Vertebral Arteries using Low Osmolar Contrast (ICD-10-PCS; 2018-03-06)
PROC: B31J1ZZ Fluoroscopy of Left Upper Extremity Arteries using Low Osmolar Contrast (ICD-10-PCS; 2018-03-06)
DX: G45.8 Other transient cerebral ischemic attacks and related syndromes (principal); E43 Unspecified severe protein-calorie malnutrition; J69.0 Pneumonitis due to inhalation of food and vomit; I74.09 Other arterial embolism and thrombosis of abdominal aorta; I20.0 Unstable angina; I65.23 Occlusion and stenosis of bilateral carotid arteries; G40.909 Epilepsy, unspecified, not intractable, without status epilepticus; Z68.23 Body mass index [BMI] 23.0-23.9, adult; Z87.820 Personal history of traumatic brain injury; I73.9 Peripheral vascular disease, unspecified; R63.4 Abnormal weight loss; I77.1 Stricture of artery; F01.50 Vascular dementia, unspecified severity, without behavioral disturbance, psychotic disturbance, mood disturbance, and anxiety
CPT/HCPCS: 36200; 36415; 37236; 70450; 70496; 70498; 70551; 71045; 80048; 80053; 80061; 80156; 80164; 81001; 82550; 82553; 83036; 84484; 85025; 85610; 85730; 87086; 93005; 93306; 97139; 99284; C1725; C1766; C1769; C1876; J1650; J7030; Q9967

== ENCOUNTER → 2018-04-03 | Outpatient (RCR) | payer MEDICARE, OTHER ==
--- NOTE | 2018-03-05 10:43 | Progress Note ---
DATE: March 05, 2018 CARDIOLOGY PROGRESS NOTE SUBJECTIVE: No new complaints today. Decreased p.o. intake. Not ambulating much. Discussed at length with family and the patient. Encouraged adherence to medication regimen, physical therapy, speech therapy. Discussed indications, alternatives, risks, and benefits of medical management of his severe peripheral vascular disease at this point with TIA symptoms to posterior fossa and severe hemodynamically significant stenosis to the left subclavian artery by multilevel pressure measurements of upper and lower extremities in the recumbent position coupled with retrograde filling of the left vertebral concerning for posterior phenomena and re-evaluation of CT with radiologist, who suggested severe stenosis of the proximal left subclavian artery. OBJECTIVE VITALS: Temperature 96.3, heart rate 70-80, blood pressure 156/70, respiratory rate 16, O2 sat 96% on room air. GENERAL: In no acute distress. Alert. NECK: No JVD. CHEST: Clear to auscultation. CARDIOVASCULAR: Regular rate and rhythm. Normal S1 and S2. ABDOMEN: Soft. EXTREMITIES: No edema. Decreased pulses. CARDIOVASCULAR MEDICATIONS: Reviewed. 1. Lovenox 40 mg subcutaneous daily. 2. Atorvastatin 40 mg at bedtime. 3. Clopidogrel 75 mg daily. 4. Aspirin 81 mg daily. STUDIES: Reviewed. Creatinine is 0.6. Hemoglobin 10 and platelets 221,000. INR 0.9. Normal transaminases. ASSESSMENT 1. Severe carotid disease. 2. Severe peripheral vascular disease with subclavian stenosis and to the left vertebral artery and transient ischemic attack stroke in posterior fossa type symptoms. 3. Deconditioning. 4. Aspiration pneumonia. 5. Dyslipidemia. 6. Hypertension. 7. Anemia. 8. Weight loss. RECOMMENDATIONS: Overall, his prognosis is guarded. At this point, a very high risk for developing strokes particularly symptoms at this point suggesting significant stenosis to the posterior fossa circulation. The patient would benefit from a left subclavian artery revascularization given concern for occlusion and/or severe stenosis of the left carotid. Surgical alternative is considered at this point nonviable. Conversations with Dr. Reyes have offered angiography and possible intervention of left subclavian artery via endovascular approach. This would be a high risk procedure and elevated risk for stroke, , heart attack, vessel trauma, and need for emergent surgical repair, and other risks, including bleeding, allergic reaction, infection, need for transfusion, and renal failure. Voicing this concern with the patient and family members at this point, they understand risks and are willing to proceed. Will plan on scheduling for tomorrow. Further discussions with the patient and family members ongoing. Family to further discuss and confirm prior to tomorrow if in deed they are willing to proceed. Dual antiplatelet therapy adherence is paramount, and has been emphasized to the patient and family members. Continue therapy also strongly encouraged. Job#: [id number] NAREN
--- NOTE | 2018-03-06 10:48 | Progress Note ---
DATE: March 06, 2018 CARDIOLOGY PROGRESS NOTE SUBJECTIVE: No complaints. OBJECTIVE VITALS: Temperature 97.9, heart rate 92, respiratory rate 18, blood pressure 138/63, O2 sat 98% on room air. GENERAL: In no acute distress. Alert. NECK: No JVD. CHEST: Clear to auscultation. CARDIOVASCULAR: Regular rate and rhythm. Normal S1 and S2. ABDOMEN: Soft. EXTREMITIES: No edema. Decreased pulses. CARDIOVASCULAR MEDICATIONS 1. Atorvastatin 40 mg at bedtime. 2. Clopidogrel 75 mg daily. 3. Aspirin 81 mg daily. STUDIES: Reviewed. White blood cells 5.5, hemoglobin 9.6, platelets 230. Creatinine 0.5. Tele: Sinus rhythm. ASSESSMENTS 1. Transient ischemic attack of posterior fossa circulation in the setting of severe left subclavian artery stenosis with vertebral artery still, now status post successful left subclavian artery percutaneous transluminal angioplasty and stent with now antegrade flow to left vertebral and 0% residual stenosis across the subclavian artery. 2. Severe peripheral arterial disease. 3. Severe carotid disease. 4. Aspiration pneumonia. 5. Deconditioning. 6. Memory issues. 7. Anemia. 8. Weight loss of unclear etiology. 9. Chest pain in the setting of emphysema and high suspicion for stable angina. RECOMMENDATIONS 1. Aspirin and Plavix. 2. Statin. 3. Advise on rehab, both with speech path as well as PT, OT. After 2 to 3 months, can consider resuming evaluation for carotid artery disease and consideration for surgical management at that time. Will need preoperative evaluation preceding. Job#: [id number] EDEL
[~2018-04-03] MED LIST changes: +FENTANYL CITRATE/PF 100MCG/2 ML INJ ONE; +HEPARIN SOD (PORCINE) 1000 UNIT/ML 30ML ONE; +HEPARIN SOD/SOD CHLORIDE 2,000 ML ONE; +IOPAMIDOL 300MG/ML 100 ML INFUS..BTL IV ONE; +LIDOCAINE HCL 2% LOCAL 20 ML VIAL ONE; +MIDAZOLAM HCL 2 MG/2 ML VIAL ONE; +NITROGLYCERIN/D5W 200 MCG/ML 250 ML ONE; +SODIUM CHLORIDE 0.9% 1000ML 1,000 ML ONE
== END ==
LOC: ST 03-31 09:50
PROVIDERS: ATTEND Internal Medicine Critical Care Medicine
DX: R13.12 Dysphagia, oropharyngeal phase (principal); T17.920A Food in respiratory tract, part unspecified causing asphyxiation, initial encounter
CPT/HCPCS: 92526 ×2; 92610; G8996; G8997; J1644; J2001; J2250; J7030; Q9967

== ENCOUNTER 2018-04-24 11:00 | Outpatient (RCR) | payer MEDICARE, OTHER ==
--- NOTE | 2018-04-22 11:54 | NUR ---
g-code modifiers: current: [id number] goal: [id number] Addendum: 04/22/18 at [address] Amended: Links added.
[~2018-04-24 11:00] MED LIST changes: -FENTANYL CITRATE/PF 100MCG/2 ML INJ ONE; -HEPARIN SOD (PORCINE) 1000 UNIT/ML 30ML ONE; -HEPARIN SOD/SOD CHLORIDE 2,000 ML ONE; -IOPAMIDOL 300MG/ML 100 ML INFUS..BTL IV ONE; -LIDOCAINE HCL 2% LOCAL 20 ML VIAL ONE; -MIDAZOLAM HCL 2 MG/2 ML VIAL ONE; -NITROGLYCERIN/D5W 200 MCG/ML 250 ML ONE; -SODIUM CHLORIDE 0.9% 1000ML 1,000 ML ONE
== END 2018-05-04 ==
LOC: ST 11:00
PROVIDERS: ATTEND Internal Medicine Critical Care Medicine
DX: R13.12 Dysphagia, oropharyngeal phase (principal); T17.920A Food in respiratory tract, part unspecified causing asphyxiation, initial encounter
CPT/HCPCS: 92526 ×9; 97139; G8996; G8997

== ENCOUNTER → 2018-05-11 | Outpatient (CLI) | payer MEDICARE, OTHER ==
--- NOTE | 2018-05-11 14:56 | Diagnostic Imaging Report ---
PROCEDURE:X-RAY MODIFIED BARIUM SWALLOW COMPARISON:[facility], DX, MODIFIED BA. SWALLOW, 02/26/2018, 10:50. INDICATIONS:Oropharyngeal dysphasia DISCUSSION:Fluoroscopic examination was performed in conjunction with speech pathology, during swallowing of a variety of thin and thick liquid consistencies. Three static images were obtained with 8 series obtained and stored to the radiology record. Significant posterior pharyngeal residue noted again but to a smaller degree. Fluoroscopy time: 1.8 minutes Total dose: 7.73 mGy Air Kerma: 2.03 Gycm2 CONCLUSION: 1. Significant posterior pharyngeal residue that reveals improvement compared to the prior study. 2. There is continued penetration with silent aspiration. 3. Overall improved pharyngeal swallowing and lung base weakness. 4. Please see the report from Speech Pathology for complete details. Dorian Marino D.O. Dictated by: Dorian Marino D.O. on 05/11/2018 at 15:07 Electronically approved by: Dorian Marino D.O. on 05/11/2018 at 15:07
== END ==
LOC: DX 12:17
PROVIDERS: ATTEND Internal Medicine Critical Care Medicine
DX: R13.13 Dysphagia, pharyngeal phase (principal); T17.920A Food in respiratory tract, part unspecified causing asphyxiation, initial encounter
CPT/HCPCS: 74230; 92611; G8996; G8997; G8998

== ENCOUNTER 2018-06-03 10:55 | Outpatient (RCR) | payer MEDICARE, OTHER | END 2018-06-04 | LOC: ST 10:55 | PROVIDERS: ATTEND Internal Medicine Critical Care Medicine | DX: R13.12 Dysphagia, oropharyngeal phase (principal); R13.13 Dysphagia, pharyngeal phase; T17.920A Food in respiratory tract, part unspecified causing asphyxiation, initial encounter ==

== ENCOUNTER 2018-06-07 14:30 | Inpatient (IN) | payer MEDICARE, OTHER ==
[~2018-06-07] VITALS: Ht 167.6 cm; Wt 66.2 kg
--- NOTE | 2018-06-07 15:15 | NUR ---
Patient stripped down of all clothes after 104.4 fever noted.
[2018-06-07] MEDS ORDERED: SODIUM CHLORIDE 0.9% 1000ML 1,000 ML ONE ×2 (15:18→15:46)
--- NOTE | 2018-06-07 15:23 | Diagnostic Imaging Report ---
ADDENDUM #1 The preliminary report was reviewed and a final report issued by Dr. Giles neuroradiologist on 06/07/2018 at 3:57 PM. Signed by: Dr. Emelyn Giles M.D. on 06/07/2018 3:57 PM ORIGINAL REPORT Exam: Noncontrast head CT. History:Rule out stroke Comparison studies: CTA head and neck dated 03/02/[address] dated 02/28/2018 Technique: Axial images were obtained from the skull base to the vertex. Coronal and sagittal images reconstructed from the axial data. Dose modulation, iterative reconstruction, and/or weight based adjustment of the mA/kV was utilized to reduce the radiation dose to as low as reasonably achievable. Intravenous contrast: None Findings: The examination is limited due to patient motion. Scalp/skull: Chronic right temporal bone fracture. No acute abnormality. Extra-axial spaces: No masses. No fluid collections. Brain sulci: Moderately prominent. Ventricles: Moderate compensatory dilatation. No hydrocephalus. Parenchyma: Stable encephalomalacic changes to the anterior temporal lobes and left orbitofrontal lobe, likely from prior trauma. There are mild scattered white matter hypodensities which are nonspecific, however likely the sequela of microvascular ischemic angiopathy. Chronic infarct is seen in the right manrique radiata. No masses, hemorrhage, or acute cortical vascular insults. Sellar/suprasellar region: No abnormalities. Craniocervical junction: Patent foramen magnum. No Chiari one malformation. Incidental findings: Atherosclerotic calcifications in the carotid siphons . Impression: Examination is limited due to patient motion. No acute abnormalities. Chronic findings: 1. Moderate generalized volume loss. 2. Chronic encephalomalacic changes to the anterior temporal lobes and left orbital frontal lobe, likely posttraumatic in nature. 3. Probable chronic right manrique radiata lacunar infarct and mild supratentorial white matter small vessel ischemic changes. This is a preliminary report was provided by the neuroradiology fellow, Dr. Dawit Saleh. Attending over read to follow. Signed by: Dawit Saleh MD on 06/07/2018 3:22 PM
[2018-06-07] MEDS ORDERED: SODIUM CHLORIDE 0.9% 1000ML 1,000 ML IV STA ×2 (15:25)
[2018-06-07] MEDS ORDERED: ACETAMINOPHEN 1000 MG/100 ML 100 ML IV ONE (15:28)
[2018-06-07 16:00] LABS: AMPHETAMINES SCREEN,URINE NEGATIVE (NEGATIVE); BENZODIAZEPINES SCREEN,URINE NEGATIVE (NEGATIVE); BILIRUBIN,URINE NEGATIVE (NEGATIVE); CLARITY,URINE HAZY (CLEAR); COLOR,URINE YELLOW (YELLOW); KETONES,URINE NEGATIVE (NEGATIVE); LEUKOCYTE ESTERASE ,URINE NEGATIVE (NEGATIVE); NITRITE,URINE NEGATIVE (NEGATIVE); PHENCYCLIDINE SCREEN,URINE NEGATIVE (NEGATIVE); PROTEIN,URINE DIPSTICK TRACE (NEGATIVE); URINE UROBILINOGEN 4 mg/dL (0.2 - 1)
[2018-06-07] MEDS ORDERED: ASPIRIN 81 MG CHEW TAB PO ONE ×2 (16:00→17:30)
[2018-06-07] MEDS ORDERED: ACETAMINOPHEN 1000 MG/100 ML IV ONE (16:00)
[2018-06-07 16:04] LABS: BACTERIA,URINE FEW /HPF; RBC,URINE 0-5 /HPF (0-5); WBC,URINE (MAN) 0-5 /HPF (0-5)
[2018-06-07 16:05] LABS: EPITHELIAL CELLS,URINE FEW /LPF
[2018-06-07 16:06] LABS: BASOPHILS % 0.4 % (0.0-1.0); EOSINOPHILS # (AUTO) 0.1 (0.0-0.4); HEMATOCRIT 29.4 % (38.2-49.6); HEMOGLOBIN 9.8 g/dL (14.0-18.0); LYMPHOCYTES # (AUTO) 0.8 (1.0-3.2); LYMPHOCYTES % 7.7 % (18.0-39.1); MEAN CORPUSCULAR HEMOGLOBIN 24.4 pg (28-32); MEAN CORPUSCULAR HGB CONC 33.3 g/dL (31-35); MEAN CORPUSCULAR VOLUME 73.1 fL (81-99); MONOCYTES # (AUTO) 0.6 (0.2-0.8); NEUTROPHILS # (AUTO) 8.2 (2.1-6.9); NEUTROPHILS % 84.5 % (38.7-80.0); PLATELET COUNT 324 x10e3/uL (140-360); RED BLOOD COUNT 4.02 x10e6/uL (4.3-5.7); RED CELL DISTRIBUTION WIDTH 16.4 % (11.7-14.4)
[2018-06-07 16:17] LABS: PROTHROMBIN TIME 14.1 seconds (11.9-14.5)
[2018-06-07 16:18] LABS: PARTIAL THROMBOPLASTIN TIME 36.8 seconds (23.8-35.5)
--- NOTE | 2018-06-07 16:19 | Diagnostic Imaging Report ---
EXAM: XR CHEST 1 VIEW DATE: 06/07/2018 3:25 PM INDICATION: Mental status changes COMPARISON: None FINDINGS: Lines and Tubes: None Heart and Mediastinum: Enlarged. Lungs and Pleura: Moderate perihilar opacities. Bones and Soft Tissues: No acute findings. IMPRESSION: 1. Perihilar opacities could represent edema and/or pneumonia. Signed by: Dr. Glen Rucker MD on 06/07/2018 4:15 PM
[2018-06-07 16:27] LABS: ALANINE AMINOTRANSFERASE 7 IU/L (0-55); ALBUMIN 2.7 g/dL (3.5-5.0); ALBUMIN/GLOBULIN RATIO 0.6 (0.8-2.0); ALKALINE PHOSPHATASE 78 IU/L (40-150); ANION GAP 15.3 mmol/L (8-16); BLOOD UREA NITROGEN 11 mg/dL (7-26); BUN/CREATININE RATIO 14 (6-25); CALCIUM 9.5 mg/dL (8.4-10.2); CARBON DIOXIDE 24 mmol/L (22-29); CHLORIDE 99 mmol/L (98-107); CREATINE KINASE 17 IU/L (30-200); CREATININE, SERUM 0.76 mg/dL (0.72-1.25); EST GLOMERULAR FILTRATION RATE > 60 ML/MIN (60-); GLUCOSE 139 mg/dL (74-118); POTASSIUM 4.3 mmol/L (3.5-5.1); SODIUM 134 mmol/L (136-145)
--- NOTE | 2018-06-07 16:43 | NUR ---
Patient doing much better at this time. Patient is not as agitated as before. Will continue to monitor patient.
[2018-06-07] MEDS ORDERED: SODIUM CHLORIDE 0.9% 1000ML 1,000 ML IV SCH (17:30)
[2018-06-07] MEDS ORDERED: AZITHROMYCIN 500MG/SOD CHL 0.9% 250ML BAG IV SCH (17:30)
[2018-06-07] MEDS ORDERED: LEVOFLOXACIN 750MG/D5W 150ML IV SCH (17:30)
[2018-06-07] MEDS ORDERED: VANCOMYCIN HCL 1GM/NS 250 ML BAG IV SCH (17:30)
[2018-06-07] MEDS ORDERED: CEFTRIAXONE SOD 1 GRAM/0.9% SOD CHL 50ML BAG IV SCH (17:30)
[2018-06-07] MEDS ORDERED: CEFTRIAXONE SOD 1 GM VIAL ONE (17:39)
[2018-06-07] MEDS: SODIUM CHLORIDE 0.9% 1000ML 1,000 ML IV SCH (17:41)
[2018-06-07] MEDS: AZITHROMYCIN 500MG/NS 250 ML 250 ML IV SCH (18:16)
[2018-06-07 18:33] VITALS: BP 126/61
[2018-06-07] MEDS ORDERED: CEFTRIAXONE SOD 1 GM/NS 50 ML 50 ML IV SCH (18:45)
--- NOTE | 2018-06-07 19:15 | NUR ---
Bedside rounds completed with morning nurse. Pt alert to name. Zambian speaking mostly. Resp even and unlabored. Denies pain at this time. Family at bedside. Call barakat within reach. Bed low and locked. Will continue to monitor.
[2018-06-07 20:15] VITALS: BP 116/74
--- NOTE | 2018-06-07 20:15 | NUR ---
Initial nursing assessment Pt room 291. Family at bedside. Pt alert to name and place. Skin warm and dry. No wounds or skin breakdowns noted. Bilateral feet scaly and dry. Lungs wheezing NIRMALA, LLL, RLL. Cap refill <3 secs. +2 bilateral hand health club manager. Denies pain or discomfort at this time. Assist with Ambulation x1 no assist devices. Last BM 06/06/18, soft, brown, mod. No acute distress noted. Oriented to room. Call barakat within reach. Bed low and locked. Bed alarm on. Will continue to monitor.
[2018-06-07 20:58] VITALS: BP 116/74
[2018-06-07] MEDS ORDERED: ATORVASTATIN 20 MG TAB PO SCH (21:00)
[2018-06-07] MEDS ORDERED: LEVOFLOXACIN 750MG/D5W 150ML 150 ML IV SCH (21:00)
[2018-06-07] MEDS ORDERED: VANCOMYCIN 1GM/NS 250 ML 250 ML IV SCH (21:00)
[2018-06-07] MEDS ORDERED: ACETAMINOPHEN 325 MG TAB PO PRN (23:30)
--- NOTE | 2018-06-07 23:30 | NUR ---
Spoke with Dr. Castaneda regarding Pt c/o severe pain to right knee. Ordered Tylenol prn and tramadol prn every 6 hours.
--- NOTE | 2018-06-07 23:37 | Consultation ---
DATE OF CONSULTATION: June 07, 2018 CARDIOLOGY CONSULTATION REASON FOR CONSULTATION: Management of cardiovascular disease. HISTORY OF PRESENT ILLNESS: Mr. Gonzales is a well known 68-year-old man with history of hypertension, dyslipidemia, strong smoking history, severe peripheral vascular disease with prior left subclavian artery stenting in the setting of vertebrobasilar steal syndrome, dementia TIAs, severe carotid disease, deconditioning, and aspiration pneumonias, who presents with 1 week of coughing and an episode of documented fever of 104 in which setting patient was significantly confused and agitated when seen by ER staff. He was treated with IV fluid hydration and antibiotics with improvement in his mental status. His chest x-ray does reveal pulmonary infiltrates concerning for pneumonia. He has prior echocardiographic finding of left ventricular systolic function, impaired relaxation late last year on prior admission. He denies any anginal-type chest discomfort, has otherwise no current complaints. is at bedside. REVIEW OF SYSTEMS: A 12-system review is negative except for as noted above. ALLERGIES: NO KNOWN DRUG ALLERGIES. PAST MEDICAL HISTORY: Significant for carotid disease, seizure disorder, aspiration pneumonia, hypertension, and dyslipidemia. SOCIAL HISTORY: Smoker of 50-pack years. Occasional alcohol use. No drug use. He has recently quit his tobacco use. PHYSICAL EXAMINATION VITAL SIGNS: Temperature 99.4, heart rate 97, blood pressure 108/52, respiratory rate 18, and O2 sat 100%. BMI 23.4. GENERAL: In no acute distress, alert. NECK: JVD is mid neck at 30 degrees head of bed elevation after 2 L IV fluid hydration. CHEST: Decreased breath sounds and scattered rales. CARDIOVASCULAR: Regular rate and rhythm. Normal S1 and S2. No S3 or S4. No murmurs, no rubs. PMI is nondisplaced. ABDOMEN: Soft and nontender. EXTREMITIES: No edema. CARDIOVASCULAR MEDICATIONS: Have been reviewed. Patient will be resumed on aspirin, Plavix, as well as statin and as well beta rona. STUDIES: Sodium 134, potassium 4.3, chloride 99, bicarbonate 24, BUN 11, creatinine 0.76, and glucose 139. White blood cells 9.7, hemoglobin 9.8, and platelets 324,000. INR 1. AST 11, ALT 7, and alkaline phosphatase 78. IMAGING STUDIES: Concerning with pulmonary infiltrates. Troponin first set negative. Patient is status post azithromycin and ceftriaxone antibiotics. ASSESSMENT 1. Pneumonia, bilateral. 2. Vascular with coronary artery disease, peripheral arterial disease, prior cerebrovascular accident, carotid disease, status post left subclavian stenosis stenting for vertebrobasilar insufficiency and posterior fossa transient ischemic attack. 3. Aspiration pneumonia, history of. 4. Hypertension and dyslipidemia. 5. Strong smoking history. RECOMMENDATIONS 1. Dual antiplatelet therapy and statin. 2. Agree with antibiotics. 3. Pulmonary consult. Patient follows with Dr. Alcantar. 4. We will obtain echocardiogram. 5. We will follow closely. Job#: [id number] CF
[2018-06-08] VITALS (7 sets, daily range): BP systolic 118–154; BP diastolic 53–73
[2018-06-08] MEDS: TRAMADOL HCL 50 MG TAB PO PRN ×3 (00:27→19:10)
[2018-06-08 03:04] LABS: CREATINE KINASE MB 0.2 ng/mL (0-5.0)
[2018-06-08 06:03] LABS: BASOPHILS % 0.3 % (0.0-1.0); EOSINOPHILS # (AUTO) 0.2 (0.0-0.4); EOSINOPHILS % 1.7 % (0.0-6.0); HEMATOCRIT 23.4 % (38.2-49.6); HEMOGLOBIN 8.1 g/dL (14.0-18.0); LYMPHOCYTES # (AUTO) 1.1 (1.0-3.2); LYMPHOCYTES % 12.1 % (18.0-39.1); MEAN CORPUSCULAR HEMOGLOBIN 24.9 pg (28-32); MEAN CORPUSCULAR HGB CONC 34.6 g/dL (31-35); MONOCYTES # (AUTO) 0.6 (0.2-0.8); NEUTROPHILS # (AUTO) 7.1 (2.1-6.9); NEUTROPHILS % 78.5 % (38.7-80.0); PLATELET COUNT 243 x10e3/uL (140-360); RED BLOOD COUNT 3.25 x10e6/uL (4.3-5.7); RED CELL DISTRIBUTION WIDTH 16.6 % (11.7-14.4)
[2018-06-08] MEDS: SODIUM CHLORIDE 0.9% 1000ML 1,000 ML IV SCH (06:41)
[2018-06-08 06:46] LABS: ALANINE AMINOTRANSFERASE 7 IU/L (0-55); ALBUMIN 2.1 g/dL (3.5-5.0); ALBUMIN/GLOBULIN RATIO 0.6 (0.8-2.0); ALKALINE PHOSPHATASE 72 IU/L (40-150); ANION GAP 13.1 mmol/L (8-16); BLOOD UREA NITROGEN 8 mg/dL (7-26); BUN/CREATININE RATIO 13 (6-25); CALCIUM 8.4 mg/dL (8.4-10.2); CARBON DIOXIDE 24 mmol/L (22-29); CHLORIDE 101 mmol/L (98-107); CREATININE, SERUM 0.61 mg/dL (0.72-1.25); EST GLOMERULAR FILTRATION RATE > 60 ML/MIN (60-); GLUCOSE 94 mg/dL (74-118); POTASSIUM 4.1 mmol/L (3.5-5.1); SODIUM 134 mmol/L (136-145)
[2018-06-08 06:53] LABS: CREATINE KINASE MB 0.2 ng/mL (0-5.0)
[2018-06-08] MEDS ORDERED: METOPROLOL SUCC25 MG (06:56)
--- NOTE | 2018-06-08 07:02 | NUR ---
RECEIVED PATIENT RESTING IN BED. RESPIRATIONS EVEN AND UNLABORED, NO ACUTE DISTRESS NOTED. CALL LIGHT WITHIN REACH. BED IN THE LOWEST POSITION.
[2018-06-08] MEDS: CLOPIDOGREL BISULFATE 75 MG TAB PO SCH (08:33)
[2018-06-08] MEDS: ASPIRIN 81 MG CHEW TAB PO SCH (08:33)
[2018-06-08] MEDS ORDERED: CEFTRIAXONE SOD 1 GM/NS 50 ML 50 ML IV SCH (09:00)
--- NOTE | 2018-06-08 09:11 | NUR ---
ST NOTE: Pt is well known to Speech Therapy and is being seen outpatient for dysphagia therapy with NMES. Pt known to trace aspirate liquid portion of mixed textures. Spoke with RN with request for BSE and NMES and dietary precaution of NO MIXED textures. Handoff to STACI Suarez
[2018-06-08] MEDS: AZITHROMYCIN 500MG/NS 250 ML 250 ML IV SCH (09:39)
[2018-06-08] MEDS ORDERED: PIPER-TAZ 3.375 GM 50 ML IV SCH (12:15)
[2018-06-08] MEDS: PIPER-TAZ 3.375 GM 50 ML IV SCH ×2 (12:55→20:00)
[2018-06-08] MEDS: CARBAMAZEPINE 200 MG TAB PO SCH ×2 (14:18→20:40)
[2018-06-08] MEDS: ALBUTEROL/IPRATROPIUM 3 ML NEB NEB SCH ×2 (15:00→20:00)
--- NOTE | 2018-06-08 15:47 | Consultation ---
DATE OF CONSULTATION: PULMONARY/CRITICAL CARE CONSULTATION CHIEF COMPLAINT: Fever and cough. HISTORY OF PRESENT ILLNESS: The patient is a 68-year-old man with severe vascular disease including stenosis of the carotid arteries, subclavian arteries, aorta and iliac vessels. He underwent a left subclavian stent several months ago and he was scheduled to have a contralateral carotid endarterectomy. The patient also has a history of recurrent aspiration pneumonia and pulmonary infiltrates. He was receiving physical therapy. He subsequently developed more coughing and difficulty breathing over the past several days. He went to Dr. Perez's office. He was subsequently admitted for possible pneumonia. PAST MEDICAL HISTORY: 1. Carotid artery disease. 2. Peripheral vascular disease. 3. Seizure disorder. 4. Hypertension. 5. Recurrent aspiration pneumonia. PAST SURGICAL HISTORY: Status post subclavian stent placement. FAMILY HISTORY: The family history is noncontributory. SOCIAL HISTORY: The patient recently quit smoking. He has not been a heavy drinker. He denies any recreational drug use. REVIEW OF SYSTEMS: The patient did not have fevers. He had no headache. He did note some cough and congestion. He noted some difficulty breathing. He had no chest pain. Had no nausea or vomiting. He had no leg edema. PHYSICAL EXAMINATION: VITAL SIGNS: The patient is afebrile. The blood pressure is 124/61. Saturation is 96% on 3 liters. The respiratory rate is 18. HEENT: Examination shows no facial swelling or erythema. CARDIAC: Exam reveals a regular rate and rhythm with a normal S1 and S2. There are no murmurs or rubs. LUNGS: Auscultation reveals clear breath sounds bilaterally. There is no wheezing. ABDOMEN: Is soft and nontender. There is no rebound or guarding. EXTREMITIES: Examination shows no leg edema or calf tenderness. There is no cyanosis or clubbing. SKIN: Examination shows no rashes. NEUROLOGIC: Exam shows no focal abnormalities. Patient's speech is improved. LABORATORY DATA: White blood cell count is 8 and the hemoglobin is 8.1. Platelet count is 243. SOO-cb-azkoisgopq ratio is normal. The other electrolytes are normal. IMPRESSIONS: 1. Recurrent aspiration pneumonia. 2. Oropharyngeal dysphagia. 3. Carotid artery atherosclerosis. 4. Severe peripheral vascular disease. PLAN: 1. Continue current antibiotics. 2. Repeat swallowing evaluation. 3. Further recommendations depending on swallowing evaluation. 4. Cardiology to evaluate patient for vascular disease. Job#: [id number] EV
[2018-06-08] MEDS: LACTOBACILLUS ACIDOPHILUS CAPSULE PO SCH (17:00)
--- NOTE | 2018-06-08 17:37 | Diagnostic Imaging Report ---
EXAMINATION: CHEST SINGLE (PORTABLE) INDICATION: Shortness of breath. Pneumonia COMPARISON: June 07, 2018 FINDINGS: Lines and Tubes: None Heart and Mediastinum: Enlarged. Lungs and Pleura: Moderate perihilar opacities. Bones and Soft Tissues: No acute findings. IMPRESSION: 1. Perihilar opacities could represent edema and/or pneumonia. Follow-up imaging is indicated to document clearing. Signed by: Dr. Pelon Robert M.D. on 06/08/2018 5:34 PM
--- NOTE | 2018-06-08 20:02 | NUR ---
REPORT GIVEN TO ONCOMING NURSE. PATIENT IS RESTING IN BED. NO ACUTE DISTRESS NOTED. AT BEDSIDE. CALL LIGHT WITHIN REACH. BED IN THE LOWEST POSITION.
--- NOTE | 2018-06-08 20:15 | NUR ---
INITIAL ASSESSMENT COMPLETE, CALL LIGHT IN REACH, FAMILY AT BEDSIDE, PT HAS TEMP, WILL MEDICATE, OTHER VS STABLE, NO DISTRESS NOTED, PT HAS DIAPER, IV X 2 INTACT, O2, 3LNC ON PT, NO OTHER NEEDS
--- NOTE | 2018-06-08 20:30 | Progress Note ---
DATE: June 08, 2018 CARDIOLOGY PROGRESS NOTE SUBJECTIVE: No new complaints today. Undergoing speech evaluation. PHYSICAL EXAMINATION: VITAL SIGNS: Temperature 98 degrees, heart rate 90, blood pressure 124/61, respiratory rate 18, O2 sat 96%. GENERAL: In no acute distress, alert. NECK: No JVD. CHEST: Clear to auscultation. CARDIOVASCULAR: Regular rate and rhythm. Normal S1 and S2. ABDOMEN: Soft. EXTREMITIES: No edema. CARDIOVASCULAR MEDICATIONS: Reviewed. Azithromycin and Zosyn, aspirin 81 mg daily, atorvastatin 40 mg nightly, metoprolol 25 mg daily. STUDIES: Reviewed. Creatinine is 0.8. Hemoglobin 8.1, white blood cells 9. INR 1. ASSESSMENT: 1. Anemia. 2. Pneumonia. 3. Carotid artery disease. 4. 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 5. Hypertension. 6. Dyslipidemia. 7. Aspiration pneumonia, recurrent. RECOMMENDATIONS 1. Continue current cardiovascular medications, monitor H and H, and anemia workup advised and deferred to primary service. 2. Speech eval and therapy ongoing with some gradual improvement per therapist, however, still recurrent aspiration risk issues now presenting again with pneumonia. Job#: [id number]
[2018-06-08] MEDS: ATORVASTATIN 40 MG TAB PO SCH (20:40)
[2018-06-08] MEDS: MIRTAZAPINE 15 MG TAB PO SCH (20:40)
[2018-06-09] VITALS (8 sets, daily range): BP systolic 132–162; BP diastolic 59–72
[2018-06-09] MEDS: PIPER-TAZ 3.375 GM 50 ML IV SCH ×3 (04:00→20:30)
--- NOTE | 2018-06-09 06:12 | NUR ---
pt awake for meds, call light in reach, family at bedside, no distress noted, vs stable
[2018-06-09 07:00] LABS: BASOPHILS % 0.8 % (0.0-1.0); EOSINOPHILS # (AUTO) 0.3 (0.0-0.4); EOSINOPHILS % 4.9 % (0.0-6.0); HEMATOCRIT 27.6 % (38.2-49.6); HEMOGLOBIN 8.8 g/dL (14.0-18.0); LYMPHOCYTES # (AUTO) 0.6 (1.0-3.2); LYMPHOCYTES % 12.3 % (18.0-39.1); MEAN CORPUSCULAR HEMOGLOBIN 23.8 pg (28-32); MEAN CORPUSCULAR HGB CONC 31.9 g/dL (31-35); MEAN CORPUSCULAR VOLUME 74.6 fL (81-99); MONOCYTES # (AUTO) 0.5 (0.2-0.8); NEUTROPHILS # (AUTO) 3.7 (2.1-6.9); NEUTROPHILS % 71.6 % (38.7-80.0); PLATELET COUNT 280 x10e3/uL (140-360); RED CELL DISTRIBUTION WIDTH 16.2 % (11.7-14.4)
--- NOTE | 2018-06-09 07:06 | NUR ---
RECEIVED PATIENT RESTING IN BED. RESPIRATIONS EVEN AND UNLABORED. NO S/S OF DISTRESS NOTED. AT BEDSIDE. CALL LIGHT WITHIN REACH. BED IN THE LOWEST POSITION.
[2018-06-09 07:20] LABS: ANION GAP 13.7 mmol/L (8-16); BLOOD UREA NITROGEN 9 mg/dL (7-26); BUN/CREATININE RATIO 15 (6-25); CALCIUM 8.8 mg/dL (8.4-10.2); CARBON DIOXIDE 25 mmol/L (22-29); CHLORIDE 97 mmol/L (98-107); CREATININE, SERUM 0.62 mg/dL (0.72-1.25); EST GLOMERULAR FILTRATION RATE > 60 ML/MIN (60-); GLUCOSE 109 mg/dL (74-118); POTASSIUM 3.7 mmol/L (3.5-5.1); SODIUM 132 mmol/L (136-145)
--- NOTE | 2018-06-09 07:29 | Diagnostic Imaging Report ---
PROCEDURE:X-RAY MODIFIED BARIUM SWALLOW COMPARISON:None. INDICATIONS:Dysphagia DISCUSSION:Fluoroscopic examination was performed in conjunction with speech pathology, during swallowing of a variety of thin and thick liquid consistencies. Fluoro time: 2.1 mins Cumulative dose: 0.452 Gy*cm2 CONCLUSION:Penetration with silent aspiration. Please see the report from speech pathology for complete details. Dorian Marino D.O. Dictated by: Dorian Marino D.O. on 06/09/2018 at 7:40 Electronically approved by: Dorian Marino D.O. on 06/09/2018 at 7:40
[2018-06-09] MEDS: ALBUTEROL/IPRATROPIUM 3 ML NEB NEB SCH ×4 (07:30→20:40)
[2018-06-09 07:50] LABS: % IRON SATURATION 12 % (15-50); IRON 13 ug/dL (65-175); TOTAL IRON BINDING CAPACITY 106 ug/dL (261-478); TRANSFERRIN 76 mg/dL (174-364)
[2018-06-09 07:57] LABS: CARBAMAZEPINE (TEGRETOL) 7.05 ug/mL (4.0-12.0); VALPROIC ACID 10 ug/mL (50-100)
[2018-06-09] MEDS ORDERED: KETOROLAC TROMETHAMINE 30 MG/ML VIAL IV STA (08:23)
[2018-06-09] MEDS: AZITHROMYCIN 500MG/NS 250 ML 250 ML IV SCH (08:46)
[2018-06-09] MEDS: ASPIRIN 81 MG CHEW TAB PO SCH (08:46)
[2018-06-09] MEDS: CLOPIDOGREL BISULFATE 75 MG TAB PO SCH (08:47)
[2018-06-09] MEDS: CARBAMAZEPINE 200 MG TAB PO SCH ×3 (08:47→20:41)
[2018-06-09] MEDS: METOPROLOL SUCCINATE 25 MG TAB XL PO SCH (08:47)
[2018-06-09] MEDS: LACTOBACILLUS ACIDOPHILUS CAPSULE PO SCH ×2 (08:47→16:19)
[2018-06-09] MEDS ORDERED: DEPAKOTE ER 500MG TAB(ONCE DAILY) PO SCH (09:00)
[2018-06-09] MEDS ORDERED: METHYLPREDNISOLONE SOD SUCC 40 MG/ML VIAL 1ML IV NR (09:00)
--- NOTE | 2018-06-09 09:51 | Consultation ---
DATE OF CONSULTATION: PULMONARY/CRITICAL CARE CONSULTATION HISTORY OF PRESENT ILLNESS: The patient complains of swelling and inflammation in the left knee. He is having difficulty bending it. He says it has been so painful that he feels like screaming out at times. The swallowing test yesterday showed some silent aspiration despite completion of physical therapy. PHYSICAL EXAMINATION VITAL SIGNS: The blood pressure is 162/72, and the pulse oximetry is 95% on 2 liters. Respiratory rate is 18. T-max is 100.2. HEENT: No facial swelling or erythema. Nasal mucosa is normal. The oropharynx is normal. LYMPHATIC: No submandibular, cervical or supraclavicular adenopathy. CARDIAC: Exam reveals regular rate and rhythm with normal S1 and S2. There are no murmurs or rubs. LUNGS: Auscultation of the lungs reveals clear breath sounds bilaterally. There is no wheezing. ABDOMEN: Soft and nontender. There is no rebound or guarding. EXTREMITIES: Orthopedic examination shows effusion in the left knee. The knee is warm, and there is some tenderness. The patient also reports some swelling in the left foot, although he does not report any tenderness over the 1st MTP joint or the dorsum of the foot. IMPRESSIONS 1. Recurrent aspiration pneumonia with sepsis present on admission. 2. Oropharyngeal dysphasia. 3. Inflammatory arthritis of the left knee. 4. Severe peripheral vascular disease. 5. Carotid artery disease. PLAN 1. Patient will require Toradol x1 along with the dose of Solu-Medrol for the inflammatory arthritis. 2. Consult orthopedics for possible arthrocentesis. 3. Continue current antibiotics. 4. Continue speech therapy. 5. Await further recommendations from cardiology regarding vascular disease. Job#: [id number]
--- NOTE | 2018-06-09 12:14 | Progress Note ---
DATE: June 09, 2018 CARDIOLOGY PROGRESS NOTE SUBJECTIVE: Passes his barium swallow except when he puts too much food in his mouth, which according to is a recurrent problem patient keeps having in spite of redirectioning. He denies any chest pain or shortness of breath. No other complaints at this point in time. PHYSICAL EXAMINATION VITAL SIGNS: Temperature 98.3, heart rate 93, blood pressure 162/72, respiratory rate 18, O2 sat 95%. GENERAL: In no acute distress, alert. NECK: No JVD. CHEST: Scattered rales. CARDIOVASCULAR: Regular rate and rhythm. Normal S1 and S2. No S3 or S4. ABDOMEN: Soft. EXTREMITIES: No edema. CARDIOVASCULAR MEDICATIONS: Reviewed. On aspirin 81 mg daily, clopidogrel 40 mg daily, metoprolol succinate 25 mg daily, clopidogrel 75 mg daily, azithromycin, Zosyn. STUDIES: Reviewed. Creatinine is 0.86. Hemoglobin 8.8, platelets 280. ASSESSMENTS 1. Aspiration pneumonia. 2. Suspected vascular dementia. 3. Prior cerebrovascular accidents. 4. Carotid disease and subclavian disease, status post left subclavian stent. 5. Diabetes and hypertension. 6. Severe peripheral vascular disease. RECOMMENDATIONS 1. Continue current cardiovascular medications. 2. Continue antibiotics. 3. Patient counseled on swallowing eval recommendation. Job#: [id number] EDEL
[2018-06-09] MEDS: IRON SUCROSE 100 MG in SODIUM CHLORIDE 0.9% 100 ML 100 ML IV SCH (15:51)
--- NOTE | 2018-06-09 16:27 | Diagnostic Imaging Report ---
Exam: left foot three views History: pain Comparison: None. Findings: No fracture or malalignment. Mild knee degenerative arthrosis. Knee joint effusion. Vascular calcifications. Impression: No acute osseous abnormality Knee joint effusion Signed by: Dr. Steven Henriquez M.D. on 06/09/2018 4:23 PM
--- NOTE | 2018-06-09 19:32 | NUR ---
REPORT GIVEN TO ONCOMING NURSE, PATIENT IS RESTING IN BED, NO ACUTE DISTRESS NOTED. CALL LIGHT WITHIN REACH. FAMILY AT BEDSIDE. BED IN THE LOWEST POSITION.
--- NOTE | 2018-06-09 20:09 | NUR ---
CONSENT FOR L KNEE ASPIRATION DONE.
--- NOTE | 2018-06-09 20:36 | NUR ---
CONSULTATION - ORTHOPEDICS Patient is a 68 year old male admitted to the hospital for cough and fevers under the medical service. He presents recently with left knee pain and effusio ns. He has pain through various parts in his body but his left knee is the most painful. He is a community ambulator without assistive devices. Denies numbness, paresthesias and loss of distal motor function PMdHx: HTN, HLD, PVD, Dementia, TIAs, Seizure disorder, Aspiratio pneumonia SurgHx: Subclavian Stent Placement SocHx: Smoking Former 50 pack year, EtOH - social, Denies any drug use FamHx: Non-contributory Allergies: NKDA VS 98.1, HR 93, 16, 144/65, O2 Sat 95% NAD, Pleasant Left Knee + Effusion, no erythema or warmth No pain with PROM ROM 0-120 Neg Sandra, Negative Anterior & Posterior Drawer No instability with varus or valgus stress test Pain with Wilman Xrays demonstrate mild degenerative changes with no gross fracture or dislocation 68 year old M with left knee effusion & pain Left knee was aspirated under sterile technique with a result of 40 cc of sanginous-synovial fluid. Fluid sent for cell count, crystals, culture, gram st ain and glucose. Compressive dressing applied. Patient felt much better after aspiration. If patient continues to have pain and aspiration is negative for infection, will provide intraarticular corticosteroid injection. Continue anti-inflammatories PT- [facility] [employer] PRN Will continue to follow Thank you for the consultation DO MONAE [facility]
[2018-06-09] MEDS: ATORVASTATIN 40 MG TAB PO SCH (20:40)
[2018-06-09] MEDS: TRAMADOL HCL 50 MG TAB PO PRN (20:40)
[2018-06-09] MEDS: MIRTAZAPINE 15 MG TAB PO SCH (20:41)
[2018-06-09 22:49] LABS: BODY FLUID APPEARANCE CLOUDY; BODY FLUID COLOR RED; BODY FLUID TYPE SYNOVIAL
[2018-06-09 22:51] LABS: RBC,BODY FLUID 83160 cells/uL; WBC,BODY FLUID 46035 cells/uL
[2018-06-10] VITALS (7 sets, daily range): BP systolic 105–147; BP diastolic 54–70
[2018-06-10 03:27] LABS: LYMPHOCYTES,BODY FLUID 3 %; MONO/MACROPHG,BODY FLUID 1 %; NEUTROPHILS,BODY FLUID 96 %
[2018-06-10] MEDS: PIPER-TAZ 3.375 GM 50 ML IV SCH ×3 (04:00→21:45)
[2018-06-10] MEDS: ALBUTEROL/IPRATROPIUM 3 ML NEB NEB SCH ×3 (07:10→19:50)
--- NOTE | 2018-06-10 07:35 | NUR ---
PT IN BED SLEEPING NO S/S DISCOMFORT,PAIN LEVEL 3,IV INFUSING TO LT AC
--- NOTE | 2018-06-10 08:59 | Progress Note ---
DATE: PULMONARY PROGRESS NOTE Patient was seen yesterday by orthopedics. The left knee was aspirated, and there was some bloody fluid removed. Patient has no fevers. PHYSICAL EXAMINATION VITAL SIGNS: Patient is afebrile. The blood pressure is 126/67 and the saturation is 96% on 2 L. HEENT: Shows no facial swelling or erythema. Nasal mucosa is normal. Oropharynx is normal. LYMPHATIC: Shows no submandibular, cervical or supraclavicular adenopathy. CARDIAC: Reveals a regular rate and rhythm with a normal S1 and S2. LUNGS: Auscultation of lungs reveals clear breath sounds bilaterally. There is no wheezing. ABDOMEN: Soft and nontender. There is no rebound or guarding. EXTREMITIES: Shows some pain and tenderness in the knees bilaterally. NEUROLOGICAL: Shows no focal abnormalities. IMPRESSION 1. Oropharyngeal dysphagia. 2. Recurrent aspiration with sepsis, present on admission. 3. Inflammatory arthritis of the left knee. 4. Severe peripheral vascular disease. PLAN 1. Await final reports from the synovial fluid. 2. Continue current antibiotics. 3. Continue speech therapy. 4. Cardiology following for peripheral vascular disease. Job#: [id number] ND
[2018-06-10] MEDS: CARBAMAZEPINE 200 MG TAB PO SCH ×3 (09:00→21:49)
[2018-06-10] MEDS: AZITHROMYCIN 500MG/NS 250 ML 250 ML IV SCH (09:00)
[2018-06-10] MEDS: METOPROLOL SUCCINATE 25 MG TAB XL PO SCH (09:00)
[2018-06-10] MEDS: LACTOBACILLUS ACIDOPHILUS CAPSULE PO SCH ×2 (09:00→17:00)
[2018-06-10] MEDS: ASPIRIN 81 MG CHEW TAB PO SCH (09:00)
[2018-06-10] MEDS ORDERED: DEPAKOTE ER 500MG TAB(ONCE DAILY) PO SCH (09:00)
[2018-06-10] MEDS: CLOPIDOGREL BISULFATE 75 MG TAB PO SCH (09:00)
--- NOTE | 2018-06-10 11:30 | NUR ---
PT DIET CHANGED TO MECH.SOFT TOLERATED WELL,NO SWALLOWING DIFFICULTY NOTED
--- NOTE | 2018-06-10 12:58 | NUR ---
PROGRESS NOTE - ORTHOPEDICS Reviewed aspiration labs Synovial Fluid WBC 46 K, PMN 96% Crystals Pending Culture & Gram Strain NGTD, No organisms seen Glucose 120 Blood WBC 5.12, Hgb 8.8, Hct 27.6, Glu 109 At this time, he has a mixed presentation. With a history of gout, this could be a recurrent flare up. Will continue to follow cultures and crystals. Discussed case with Dr. Alcantar. Alma Perez, [facility]
--- NOTE | 2018-06-10 13:03 | Progress Note ---
DATE: June 10, 2018 CARDIOLOGY PROGRESS NOTE SUBJECTIVE: No new complaints. PHYSICAL EXAMINATION VITAL SIGNS: Temperature 98.1, heart rate 91, respiratory rate 17, blood pressure 147/67, O2 sat 96% on 2 liters per minute nasal cannula. GENERAL: In no acute distress, alert. NECK: No JVD. CHEST: Clear to auscultation. CARDIOVASCULAR: Regular rate and rhythm. Normal S1 and S2. ABDOMEN: Soft. EXTREMITIES: No edema. CARDIOVASCULAR MEDICATIONS: Reviewed. 1. Metoprolol succinate 25 mg daily. 2. Clopidogrel 75 mg daily. 3. Aspirin 81 mg daily. 4. Zosyn and azithromycin antibiotics. 5. Atorvastatin 40 mg at bedtime. STUDIES: Reviewed. No lab work available for today. Blood cultures negative x48 hours. most recent telemetry in sinus rhythm. ASSESSMENTS 1. Aspiration pneumonia. 2. Suspected vascular dementia. 3. Prior cerebrovascular accidents. 4. Carotid artery disease and subclavian disease, status post left subclavian stenosis. 5. Diabetes mellitus. 6. Hypertension. 7. Severe peripheral vascular disease. RECOMMENDATIONS 1. Continue current cardiovascular medications. 2. Continue speech therapy. 3. Continue antibiotics. 4. Status post left arthrocentesis, improved knee inflammation and arthritis. Await results. Job#: [id number] EDEL
[2018-06-10] MEDS: IRON SUCROSE 100 MG in SODIUM CHLORIDE 0.9% 100 ML 100 ML IV SCH (15:00)
--- NOTE | 2018-06-10 17:57 | NUR ---
PT UP IN BED TOLERATED DIET WELL,DENIES PAIN.
--- NOTE | 2018-06-10 19:20 | NUR ---
Patient visited in room during nursing rounds. Patient alert and oriented x3 and yi speaking only. at bedside accompanying patient in room. Patient on scheduled antibiotic. Pt denies any discomfort or pain. Call barakat within reach. Will monitor closely.
[2018-06-10] MEDS: MIRTAZAPINE 15 MG TAB PO SCH (21:49)
[2018-06-10] MEDS: ATORVASTATIN 40 MG TAB PO SCH (21:49)
[2018-06-11] VITALS: BP 130/54
[2018-06-11 04:00] VITALS: BP 123/58
[2018-06-11] MEDS ORDERED: PIPER-TAZ 3.375 GM 50 ML IV SCH (06:00)
[2018-06-11] MEDS: ALBUTEROL/IPRATROPIUM 3 ML NEB NEB SCH ×3 (07:00→14:29)
--- NOTE | 2018-06-11 07:30 | NUR ---
PT IN BED SLEEPING ,NO DISTRESS NOTED,
[2018-06-11 07:35] VITALS: BP 128/62
[2018-06-11 07:43] VITALS: BP 128/62
--- NOTE | 2018-06-11 09:19 | Progress Note ---
DATE: PULMONARY PROGRESS NOTE The patient is resting comfortably. He still has some knee pain, although it has improved. PHYSICAL EXAMINATION VITALS: The patient is afebrile. The blood pressure 128/62 and the saturation is 95% on 2 L. HEENT: Shows no facial swelling or erythema. The oropharynx is normal. LYMPHATIC: Shows no submandibular, cervical or suprapubic adenopathy. CARDIAC: Reveals a regular rate and rhythm with a normal S1 and S2. LUNGS: Auscultation of the lungs reveals clear breath sounds bilaterally. There is no wheezing. ABDOMEN: Soft and nontender. There is no rebound or guarding. EXTREMITIES: Shows some persistent tenderness in the right knee and the knee is bandaged. There is no tenderness or swelling in the feet. LABORATORY DATA: Electrolytes are within normal limits. The CBC is normal. IMPRESSION 1. Oropharyngeal dysphagia with recurrent aspiration. 2. Inflammatory arthritis of the left knee. 3. Severe peripheral vascular disease. 4. Subclavian stenosis with a prior stent. 5. Right carotid artery disease with significant obstruction. PLAN 1. Await completion of treatment for inflammatory arthritis. 2. Okay for discharge from a pulmonary perspective. Will need p.o. antibiotics and continue speech therapy at home. 3. Continue evaluation and treatment for peripheral vascular disease. Job#: [id number] NAREN
--- NOTE | 2018-06-11 10:00 | NUR ---
PT UP IN BED DENIES PAIN,TOLERATING DIET WELL/
[2018-06-11 11:35] VITALS: BP 117/58
[2018-06-11] MEDS ORDERED: AUGMENTIN 500-1 EACH PO (13:06)
--- NOTE | 2018-06-11 14:16 | Discharge Summary ---
PRIMARY CARE DOCTOR: Dr. Jing Perez FINAL DIAGNOSES 1. Sepsis present on admission due to likely aspiration pneumonia. 2. Metabolic encephalopathy present on admission due to aspiration pneumonia, resolved. 3. Inflammatory knee with effusion, status post arthrocentesis. 4. Peripheral vascular disease. 5. Seizure disorder. 6. Iron deficiency anemia. SECONDARY DIAGNOSIS: Dysphagia. CONSULTANTS 1. Dr. James, cardiology. 2. Dr. Alcantar, pulmonology. 3. Dr. Perez, orthopedic doctor PROCEDURES/STUDIES PERFORMED 1. Modified barium swallow study. 2. Bedside arthrocentesis. 3. Head CT. HISTORY: Per H and P. HOSPITAL COURSE: The patient was admitted. The patient was started on Zosyn. He responded well. The patient can be on mechanical soft diet with thin liquids per speech therapist after modified barium swallow study. The family and the were instructed to eat at a very slow pace. The patient will go home on 3 more days of Augmentin to finish the course. He will follow up with Dr. Alcantar to continue speech therapy as an outpatient. The patient did have some debility afterwards. The patient will go home on home physical therapy. Will request a rolling walker through his insurance. The patient also developed a left knee effusion. An arthrocentesis was done. The patient felt better. The patient also got his dose of Toradol. The patient had less than 50,000 WBCs in the joint fluid. Culture is negative. Therefore, this is not a septic knee. His knee is feeling better as well. As far as his peripheral vascular disease, the patient is to continue aspirin and Plavix. The patient also received intravenous iron for his iron deficiency anemia. The patient will probably need a colonoscopy as an outpatient if this has not been done recently. Will defer to primary care doctor. The patient was seen and examined today. It took 35 minutes total to discharge this patient. CONDITION ON DISCHARGE: Improved. DISCHARGE MEDICATIONS: Please see medication reconciliation form. ROMARIO BRAMBILA M.D. Job#: [id number] cc:JING PEREZ MD
--- NOTE | 2018-06-11 14:35 | NUR ---
PT DISCHARGED HOME IV DCD WITHOUT REDNESS OR SWELLING,PRESCRIPTIONS AND INSTRUCTIONS GIVEN COPY ON CHART
--- NOTE | 2018-06-11 15:12 | NUR ---
LE: 06/08/2018 CASE MANAGEMENT INITIAL ASSESSMENT Finishing Machine Operator to bedside to discuss plan of care with patient/family. CM/SW role and care transitions discussed. Anticipated discharge plan discussed along with duration of care. CM/SW discussed patients right to make decisions in care. CM/SW work hours given. Patient lives: IN HOME W Admit/Transfer: ER Hospital/ER visits since last admit: NONE POA/Emergency contact: NORMA DONGOS [phone] Current/Previous Home Health: HOME PT NEVER STARTED / ORDER WAS SENT TO [facility] DAY PCP/Follow-up Care: DR. HENSLEY Current/Previous DME: NONE Medications (referring to index hospitalization or the first time you were in the hospital) N/A a. Were changes made in your medications when you were in the hospital on [date of index hospitalization]? Yes No Not sure Explain: Note: If no or not sure, please skip to question d b. Did you understand the changes? Yes No Explain: c. Were you able to obtain your new medications right away? Yes No n/a SNF only Explain: d. Were you able to take your medications like the doctor wanted you to? Yes No Explain: e. Did the hospital give you an accurate, easy to understand list of medications when you left? Yes No n/a SNF only Explain: Scale of 1-10 how comfortable does patient feel with disease management in outpatient setting: Other Services: SPEECH THERAPY IN THE [facility] [place] Employment Status: RETIRED / DISABLED SINCE 1989 DUE TO SEIZURES Areas of Concerns: NEEDS HH STARTED. PT LOST 45LBS SINCE FEBRUARY 2018. HAD COLONOSCOPY/EGD STATES SEEMS LIKE HE DECLINED SINCE THE PROCEDURE. Referral Needs: [place], ROLLATOR Education Needs: IMM/HANKINS given and signed (if applicable): GIVEN ALREADY Goal for discharge: RETURN HOME CM/SW left business card at the bedside with contact information. Name and number was also written on the patients whiteboard. Patient verbalized understanding of discussion. CM will follow-up with ongoing discharge and transition of care needs.
--- NOTE | 2018-06-11 15:53 | NUR ---
MET W THE PT AND SPOUSE AT THE BEDSIDE. DISCUSSED ORDER FOR HOME PT. PT SIGNED CHOICE LETTER. COPY TO CHART AND COPY TO PT. Addendum: 06/11/18 at 1557 by [place] Troy CM FAXED PT ORDER TO [facility] @ [phone] / FAX [phone]. SPOKE Rupali WISDOM TO VERIFY IF [place]ORE[place] SPEAKING NURSE. RECEIVED CALL BACK STATING THEY WERE NOT IN NETWORK W THE PT'S INSURANCE.
--- NOTE | 2018-06-11 15:57 | NUR ---
CALL MADE TO [facility] @ OFF [phone] / FAX: [phone]. CALL TO VERIFY IF HH ABLE TO SERVICE THE PT. SPOKE W DIONICIO. 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 THEY HAVE ALSO SPOKEN W THE FAMILY AND WILL CALL TO SCHEDULE A TIME TO ADMIT THE PT. ORDER WAS FAXED TO NURSE'S NIGHT AND DAY.
== END 2018-06-11 14:33 | disposition home health service (06) | DRG 871 ==
LOC: ER 14:30 → ERHOLD 17:26 → MED/SURG3 18:05
PROVIDERS: ADMIT Internal Medicine; ATTEND Internal Medicine
PROC: 0S9D3ZX Drainage of Left Knee Joint, Percutaneous Approach, Diagnostic (ICD-10-PCS; principal; 2018-06-09)
DX: A41.9 Sepsis, unspecified organism (principal); G93.41 Metabolic encephalopathy; J69.0 Pneumonitis due to inhalation of food and vomit; R65.20 Severe sepsis without septic shock; M25.462 Effusion, left knee; G40.909 Epilepsy, unspecified, not intractable, without status epilepticus; D50.9 Iron deficiency anemia, unspecified; I73.9 Peripheral vascular disease, unspecified; I10 Essential (primary) hypertension; Z87.891 Personal history of nicotine dependence; E78.5 Hyperlipidemia, unspecified; F03.90 Unspecified dementia, unspecified severity, without behavioral disturbance, psychotic disturbance, mood disturbance, and anxiety; Z86.73 Personal history of transient ischemic attack (TIA), and cerebral infarction without residual deficits; Z83.3 Family history of diabetes mellitus; R13.12 Dysphagia, oropharyngeal phase; I65.29 Occlusion and stenosis of unspecified carotid artery; Z95.828 Presence of other vascular implants and grafts
CPT/HCPCS: 36415; 70450; 71045; 74230; 80048; 80053; 80156; 80164; 80307; 81001; 82140; 82550; 82553; 82945; 83540; 83605; 83880; 84466; 84484; 85025; 85610; 85730; 87040; 87070; 87205; 87400; 89051; 89060; 93005; 94640; 96367; 99284; J0456; J0696; J1756; J1885; J2543; J2920; J3370; J7030

== ENCOUNTER 2018-08-31 11:17 | Outpatient (RCR) | payer MEDICARE, OTHER ==
--- NOTE | 2018-06-08 09:55 | NUR ---
ST NOTE: Pt is well known to Speech Therapy and is being seen outpatient for dysphagia therapy with NMES. Pt's spouse phoned and informed this office that he is hospitalized. Pt known to trace aspirate liquid portion of mixed textures. Spoke with RN with request for BSE and NMES and dietary precaution of NO MIXED textures. Handoff to STACI Suarez
--- NOTE | 2018-06-15 08:47 | NUR ---
ST NOTE: Pt in need of new order to resume ST services to treat dysphagia. Apt for today to be rescheduled after order is received and MD has been faxed an order to sign.
--- NOTE | 2018-08-31 14:56 | NUR ---
Clinical Swallow Evaluation/Initial Treatment Session Patient is a 68 year old male with diagnosis of dysphagia and aspiration. Pt participated in a modified barium swallow study on 02/26/18. Pt presented with mild/moderate pharyngeal dysphagia with intermittent trace/mild silent aspiration of thin and pureed textures. Dysphagia was judged to be secondary to reduced laryngeal elevation/excursion and tongue base weakness. Pt participated in one month of treatment with dysphagia exercises and Neuromuscular Electrical Stimulation. MBS 05/11/18 Pt with improved pharyngeal swallow and improved tongue base weakness. Continued penetration of thin liquids and trace silent aspiration of mixed portion of mixed texture. Improved pharyngeal residue and improved pharyngeal constriction. Continued treatment was recommended. MBS 06/08/18 Significant gains in swallow function were noted. Pt presented with normal swallow for majority of MBS. Only after large 4-5 consecutive swallow of cup bolus did pt have vallecular and pyriform sinus residue. Recommendation was made for continued dysphagia therapy to increase strength and coordination of swallow. Patient was seen today in the outpatient clinic for initial treatment of Neuromuscular Electrical Stimulation (NMES) with VitalStim Therapy and traditional dysphagia therapy with pharyngeal exercises. [place]-speaking staff member provided translation assistance. Previously established POC was continued and is as outlined below: Short term goals and progress this session follow: 1.Pt will complete 3 repetitions of a set of dysphagia exercises to improve laryngeal elevation, base of tongue retraction, and laryngeal closure, 10 repetitions per exercise, with minimal cuespt completed exercises with moderate assistance. 2.Pt will tolerate NMES for 45 60 minutes with no clinical s/s of aspiration to improve strength of pharyngeal constrictors, hyolaryngeal excursion, and safety with po intakept tolerated 60 minutes of NMES with thin liquid and hard candy at a max of 15.5 mA. Placement 2b was used to target the mylohyoid muscle, the sternohyoid muscle, the omohyoid muscle, the geniohyoid muscle, the thyrohyoid muscle, and the superior laryngeal nerve. Channel 1 of the electrodes was aligned along midline over the geniohyoid belly and channel 2 of the electrodes was aligned horizontally on either side of the thyroid notch. This placement was used to improve base of tongue strength, hyolaryngeal excursion, and UES opening. Cough noted X 2, throat clear X 2. 3.Pt will complete home dysphagia exercise program targeting laryngeal elevation, base of tongue strength, and cricopharyngeal function independentlypt reported completion of home exercise program at least once per day. 4.Pt will follow aspiration precautions with independencept reported following aspiration precautions with independence. 5.Pt will participate in a repeat Modified Barium Swallow study to objectively re-assess swallow safety and function and determine safest dietscheduled 09/16/18. Impressions: Pt tolerates treatment well and reports less coughing and choking with meals. However, he continues to report and demonstrate s/s of aspiration during meals which significantly interferes with his quality of life. Continued treatment is recommended to complete the recommended 12 sessions of therapy. 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 Short Term Goals: 1.Pt will complete 3 repetitions of a set of dysphagia exercises to improve laryngeal elevation, base of tongue retraction, and laryngeal closure, 10 repetitions per exercise, with minimal cues. 2.Pt will tolerate NMES for 45 60 minutes with no clinical s/s of aspiration to improve strength of pharyngeal constrictors, hyolaryngeal excursion, and safety with po intake. 3.Pt will complete home dysphagia exercise program targeting laryngeal elevation, base of tongue strength, and cricopharyngeal function independently. 4.Pt will follow aspiration precautions with independence. 5.Pt will participate in a repeat Modified Barium Swallow study to objectively re-assess swallow safety and function and determine safest diet. Tali Lau M.A. [facility] Date of Session: 08/31/18 Dysphagia Evaluation X 65 minutes
== END 2018-09-01 ==
LOC: ST 11:17
PROVIDERS: ATTEND Internal Medicine Critical Care Medicine
DX: R13.13 Dysphagia, pharyngeal phase (principal)

== ENCOUNTER → 2018-08-31 | Outpatient (CLI) | payer MEDICARE, OTHER ==
[~2018-08-31] MED LIST changes: +AUGMENTIN 500-1 EACH PO; +METOPROLOL SUCC25 MG
== END ==
LOC: SLEEP 16:10
PROVIDERS: ATTEND Internal Medicine Critical Care Medicine
DX: R13.13 Dysphagia, pharyngeal phase (principal)

== ENCOUNTER 2018-09-14 11:00 | Outpatient (RCR) | payer MEDICARE, OTHER ==
--- NOTE | 2018-09-10 11:40 | NUR ---
ST NOTE: Pt no show for therapy today, next session scheduled for 09/14/18 at 1100
--- NOTE | 2018-09-15 12:29 | NUR ---
ST Note: Pt did not keep appointment. [place]-speaking staff member called pt and confirmed appointment for modified barium swallow study tomorrow 09/16/18.
== END 2018-10-02 ==
LOC: ST 11:00
PROVIDERS: ATTEND Internal Medicine Critical Care Medicine
DX: R13.12 Dysphagia, oropharyngeal phase (principal)

== ENCOUNTER → 2018-09-16 | Outpatient (CLI) | payer MEDICARE, OTHER ==
--- NOTE | 2018-09-16 14:25 | Diagnostic Imaging Report ---
Exam: Modified barium swallow History: Dysphagia Comparison: None available Findings: There is premature spillage to the vallecula and pyriform sinus. There is also laryngeal penetration but no evidence of aspiration. Fluoroscopy time: 1.7 minutes Total dose: 1.73 Gy.cm2 Impression: 1. Premature spillage to the vallecula and pyriform sinus with laryngeal penetration. 2. Please see the full report provided by the speech pathologist. Signed by: Dr. Dorian Marino DO on 09/16/2018 2:22 PM
== END ==
LOC: DX 10:12
PROVIDERS: ATTEND Internal Medicine Critical Care Medicine
DX: R13.13 Dysphagia, pharyngeal phase (principal)
CPT/HCPCS: 74230

== ENCOUNTER → 2021-07-17 | Outpatient (CLI) | payer MEDICARE, OTHER | LOC: MRI 10:48 | PROVIDERS: ATTEND Family Medicine | DX: M25.561 Pain in right knee (principal); S83.241A Other tear of medial meniscus, current injury, right knee, initial encounter; S83.281A Other tear of lateral meniscus, current injury, right knee, initial encounter; M17.11 Unilateral primary osteoarthritis, right knee; M25.461 Effusion, right knee ==

== ENCOUNTER → 2021-10-02 | Outpatient (RCR) | payer MEDICARE, OTHER | LOC: PT 09-12 10:49 | PROVIDERS: ATTEND Specialist | DX: M25.511 Pain in right shoulder (principal); M25.561 Pain in right knee; M25.571 Pain in right ankle and joints of right foot; M17.11 Unilateral primary osteoarthritis, right knee | CPT/HCPCS: 97139 ==

== ENCOUNTER 2021-10-19 09:53 | Outpatient (RCR) | payer MEDICARE, OTHER | END 2021-11-01 | LOC: PT 09:53 | PROVIDERS: ATTEND Specialist | DX: M17.11 Unilateral primary osteoarthritis, right knee (principal); M25.511 Pain in right shoulder; M25.561 Pain in right knee; M25.571 Pain in right ankle and joints of right foot ==

== ENCOUNTER 2022-03-08 23:57 | Emergency (ER) | payer MEDICARE, OTHER ==
[~2022-03-08] VITALS: Ht 167.6 cm; Wt 66.2 kg
== END 2022-03-09 02:08 | disposition home or self-care (01) ==
LOC: ER 03-09 00:01
DX: S00.83XA Contusion of other part of head, initial encounter (principal); M54.50 Low back pain, unspecified; R42 Dizziness and giddiness; W01.0XXA Fall on same level from slipping, tripping and stumbling without subsequent striking against object, initial encounter; Y93.01 Activity, walking, marching and hiking; Y92.89 Other specified places as the place of occurrence of the external cause; F03.90 Unspecified dementia, unspecified severity, without behavioral disturbance, psychotic disturbance, mood disturbance, and anxiety; I10 Essential (primary) hypertension; E78.5 Hyperlipidemia, unspecified; I25.10 Atherosclerotic heart disease of native coronary artery without angina pectoris
CPT/HCPCS: 70450; 72131; 99283